=== PATIENT | male | born 1960 | race Caucasian/White ===

== ENCOUNTER 2016-08-22 21:28 | Inpatient (IN) | payer BC ==
[2016-08-22 22:21] VITALS: BMI 22.8
[2016-08-22] MEDS ORDERED: IPRATROPIUM BR 0.02% 0.5 MG/2.5 ML VIAL.NEB. NEB ONE ×2 (23:05→23:27)
[2016-08-22] MEDS ORDERED: ALBUTEROL SO4 0.083% IH SOL 2.5 MG/3 ML VIAL.NEB. NEB ONE ×2 (23:05→23:27)
[2016-08-22] MEDS ORDERED: predniSONE 20 MG TABLET (UD) PO ONE (23:05)
--- NOTE | 2016-08-22 23:26 | PDOC ---
History of Present Illness - History of Present Illness Initial Comments: 08/23/16 00:14 The patient is a 55 year old male, with a significant past medical history of COPD, who presents to the emergency department with tannish-productive cough and shortness of breath for 3 days despite using his albuterol. The patient states he can barely shower without becoming short of breath. He states he also feels jittery the past couple of days. The patient reports using his albuterol at least five times daily. He denies chest pain, headache and dizziness. He denies fever, chills, nausea, vomit, diarrhea and constipation. He denies dysuria, frequency, urgency and hematuria. Allergies: NKDA Past surgical history: left knee and lower back surgeries Social history: everyday tobacco smoker (10 cigarettes) PCP - Dr. Parker Food Service Utility Worker - Dr. Putnam Website Developer: Dr. Vilchis <Annika Arnett - Last Filed: 08/23/16 00:13> - General History Source: Patient Exam Limitations: No Limitations <Brock Munroe - Last Filed: 08/23/16 01:19> - General Chief Complaint: Respiratory Stated Complaint: DIFF BREATHING Time Seen by Provider: 08/22/16 22:39 Past History <Annika Arnett - Last Filed: 08/23/16 00:13> - Past Medical History Anemia: No Asthma: No Cancer: No Cardiac Disorders: No CVA: No COPD: Yes CHF: No Dementia: No Diabetes: No GI Disorders: No Disorders: No HTN: No Hypercholesterolemia: No Liver Disease: No Seizures: No Thyroid Disease: No - Surgical History Abdominal Surgery: No Appendectomy: No Cardiac Surgery: No Cholecystectomy: No Lung Surgery: No Neurologic Surgery: No Orthopedic Surgery: Yes (LEFT KNEE ARTHROSCOPY 2012) - Psycho/Social/Smoking Cessation Hx Anxiety: No Suicidal Ideation: No Smoking Status: Yes Smoking History: Never smoked Number of Cigarettes Smoked Daily: 40 Information on smoking cessation initiated: Yes 'Breaking Loose' booklet given: 08/22/16 Hx Alcohol Use: Yes (SOCIALLY) Drug/Substance Use Hx: No Substance Use Type: None Hx Substance Use Treatment: No <Brock Munroe - Last Filed: 08/23/16 01:19> - Past Medical History Allergies/Adverse Reactions: Allergies Allergy/AdvReac Type Severity Reaction Status Date / Time No Known Allergies Allergy Verified 08/22/16 22:01 Home Medications: Ambulatory Orders Albuterol Sulfate Inhaler - [Ventolin Hfa Inhaler -] 1 - 2 inh PO QID PRN Budesonide/Formeterol Fumarate [SYMBICORT 160/4.5mcg -] 2 inh PO DAILY 08/23/16 Meloxicam [Mobic] 7.5 mg PO DAILY 08/23/16 Oxycodone HCl/Acetaminophen [Percocet 5-325 mg Tablet -] 1 tab PO DAILY PRN 01/02 Pregabalin [Lyrica] 50 mg PO BID 08/23/16 Review of Systems - Review of Systems Able to Perform ROS?: Yes Comments:: 08/23/16 00:14 GENERAL/CONSTITUTIONAL: No fever or chills. No weakness. HEAD, EYES, EARS, NOSE AND THROAT: No change in vision. No ear pain or discharge. No sore throat. CARDIOVASCULAR: No chest pain or shortness of breath. RESPIRATORY: (+) shortness of breath, cough, and dyspnea on exertion. No wheezing, or hemoptysis. GASTROINTESTINAL: No nausea, vomiting, diarrhea or constipation. GENITOURINARY: No dysuria, frequency, or change in urination. MUSCULOSKELETAL: No joint or muscle swelling or pain. No neck or back pain. SKIN: No rash NEUROLOGIC: No headache, vertigo, loss of consciousness, or change in strength/ sensation. ENDOCRINE: No increased thirst. No abnormal weight change. HEMATOLOGIC/LYMPHATIC: No anemia, easy bleeding, or history of blood clots. ALLERGIC/IMMUNOLOGIC: No hives or skin allergy. <Annika Arnett - Last Filed: 08/23/16 00:13> *Physical Exam - Vital Signs Last Vital Signs Temp Pulse Resp BP Pulse Ox 97.4 F L 109 H 20 155/106 91 L 08/22/16 22:01 08/22/16 22:01 08/22/16 22:01 08/22/16 22:01 08/22/16 22:01 - Physical Exam Comments: 08/23/16 00:15 GENERAL: Awake, alert, and fully oriented, in no acute distress HEAD: No signs of trauma EYES: PERRLA, EOMI, sclera anicteric, conjunctiva clear ENT: Auricles normal inspection, hearing grossly normal, nares patent, oropharynx clear without exudates. Moist mucosa NECK: Normal ROM, supple, no lymphadenopathy, JVD, or masses LUNGS: (+) mild end expiratory wheezing bilaterally. Breath sounds equal. No crackles HEART: Regular rate and rhythm, normal S1 and S2, no murmurs, rubs or gallops ABDOMEN: Soft, nontender, normoactive bowel sounds. No guarding, no rebound. No masses EXTREMITIES: Normal range of motion, no edema. No clubbing or cyanosis. No cords, erythema, or tenderness NEUROLOGICAL: Cranial nerves II-XII intact. Normal speech, normal gait. Sensation intact in upper and lower extremities. 5/5 motor strength in upper and lower extremities. No pronator drift. Finger to nose intact. Rapid alternations intact. SKIN: Warm, Dry, normal turgor, no rashes or lesions noted. <Annika Arnett - Last Filed: 08/23/16 00:13> - Vital Signs Last Vital Signs Temp Pulse Resp BP Pulse Ox 97.4 F L 109 H 20 155/106 91 L 08/22/16 22:01 08/22/16 22:01 08/22/16 22:01 08/22/16 22:01 08/22/16 22:01 <Brock Munroe - Last Filed: 08/23/16 01:19> Heart Score/ECG Review #1 ECG reviewed & interpreted by me at: 00:30 08/23/16 01:03 NSR 109, no std/jolanta, normal axis, normal intervals, QTC 482 msec, T wave flat V2 <Brock Munroe - Last Filed: 08/23/16 01:19> ED Treatment Course - LABORATORY CBC & Chemistry Diagram: 08/22/16 23:06 08/22/16 23:06 - ADDITIONAL ORDERS Additional order review: Laboratory Results 08/22/16 23:06 Sodium 138 Potassium 4.6 Chloride 101 Carbon Dioxide 26 Anion Gap 11 BUN 16 Creatinine 1.3 D Creat Clearance w eGFR 57.31 Random Glucose 97 Calcium 8.6 Magnesium 2.1 Total Bilirubin 0.6 D AST 24 D ALT 36 D Alkaline Phosphatase 90 Creatine Kinase 88 Troponin I 0.03 B-Natriuretic Peptide 4195.48 H Total Protein 6.9 Albumin 3.6 08/22/16 23:06 RBC 4.84 MCV 89.9 MCHC 31.9 L RDW 14.0 MPV 9.8 Neutrophils % 69.8 Lymphocytes % 17.8 Monocytes % 10.4 H Eosinophils % 1.3 Basophils % 0.7 - Medications Given in the ED: ED Medications Discontinued Medications Generic Name Dose Route Start Last Admin Trade Name Harley PRN Reason Stop Dose Admin Albuterol Sulfate 3 amp 08/22/16 23:05 08/22/16 23:34 Ventolin 0.083% Nebulizer Soln - NEB 08/22/16 23:06 3 amp ONCE ONE Administration Ipratropium [place] 3 amp 08/22/16 23:05 08/22/16 23:34 Atrovent 0.02% Nebulizer - NEB 08/22/16 23:06 3 amp ONCE ONE Administration Prednisone 60 mg 08/22/16 23:05 08/22/16 23:36 Deltasone - PO 08/22/16 23:06 60 mg ONCE ONE Administration <Annika Arnett - Last Filed: 08/23/16 00:13> - LABORATORY CBC & Chemistry Diagram: 08/22/16 23:06 08/22/16 23:06 - RADIOLOGY Radiology Studies Ordered: Category Date Time Status CHEST PA & LAT [RAD] Stat Radiology 08/22/16 23:05 Ordered <Brock Munroe - Last Filed: 08/23/16 01:19> Medical Decision Making - Medical Decision Making 08/22/16 23:23 A portion of this note was documented by scribe services under my direction. I have reviewed the details of the note, within reason, and agree with the documentation with the following case summary and management plan written by me. Patient treated in the ED. Nursing notes are reviewed and incorporated into the medical decision-making. Vital signs reviewed. Peripheral IV access obtained by the nurse, laboratory studies are drawn and sent, reviewed and interpreted by myself. Vital Signs Temp Pulse Resp BP Pulse Ox 97.4 F L 109 H 20 155/106 91 L 08/22/16 22:01 08/22/16 22:01 08/22/16 22:01 08/22/16 22:01 08/22/16 22:01 55-year-old male with history of COPD presents to the ED with 3 days of tannish- productive cough and wheezing. He reports increasing SOB and HANSEN despite taking albuterol. Denies fevers, chills, sick contacts. The pt is likely having a COPD exacerbation. Labs, chest xray, nebs, prednisone and reassess. 08/23/16 01:16 CBC, BMP 08/22/16 23:06 08/22/16 23:06 CMP Sodium 138 mmol/L (136-145) 08/22/16 23:06 Potassium 4.6 mmol/L (3.5-5.1) 08/22/16 23:06 Chloride 101 mmol/L (98-107) 08/22/16 23:06 Carbon Dioxide 26 mmol/L (21-32) 08/22/16 23:06 Anion Gap 11 (8-16) 08/22/16 23:06 BUN 16 mg/dL (7-18) 08/22/16 23:06 Creatinine 1.3 mg/dL (0.7-1.3) D 08/22/16 23:06 Creat Clearance w eGFR 57.31 (>60) 08/22/16 23:06 Random Glucose 97 mg/dL (74-106) 08/22/16 23:06 Calcium 8.6 mg/dL (8.5-10.1) 08/22/16 23:06 Magnesium 2.1 mg/dL (1.8-2.4) 08/22/16 23:06 Total Bilirubin 0.6 mg/dL (0.2-1.0) D 08/22/16 23:06 AST 24 U/L (15-37) D 08/22/16 23:06 ALT 36 U/L (12-78) D 08/22/16 23:06 Alkaline Phosphatase 90 U/L (45-117) 08/22/16 23:06 Creatine Kinase 88 IU/L (39-308) 08/22/16 23:06 Troponin I 0.03 ng/ml (0.00-0.05) 08/22/16 23:06 B-Natriuretic Peptide 4195.48 pg/ml (5-125) H 08/22/16 23:06 Total Protein 6.9 g/dl (6.4-8.2) 08/22/16 23:06 Albumin 3.6 g/dl (3.4-5.0) 08/22/16 23:06 Chest xray reviewed by me, pending official radiology read. Cardiomegaly and pulm vasc congestion. Pt reports some mild improvement with nebs. I suspect that this may have occurred because this is likely CHF, especially given elevated BNP IV lasix ordered. Case discussed with Dr. Harrison. She accepts the patient to telemetry admission. Case discussed in detail with admitting physician including history, physical exam and ancillary studies. Admitting physician has assumed care for the patient, will follow all pending diagnostics and will complete the evaluation and treatment. <Brock Munroe - Last Filed: 08/23/16 01:19> *DC/Admit/Observation/Transfer - Attestations Scribe Attestion: 08/23/16 00:17 Documentation prepared by Annika Arnett, acting as medical instrument cable fabricator for Brock Munroe MD, MD <Annika Arnett - Last Filed: 08/23/16 00:13> - Discharge Dispostion Admit: Yes <Brock Munroe - Last Filed: 08/23/16 01:19> Diagnosis at time of Disposition: Congestive heart failure Qualifiers: Congestive heart failure type: unspecified congestive heart failure type Congestive heart failure chronicity: acute Qualified Code(s): I50.9 - Heart failure, unspecified - Discharge Dispostion Condition at time of disposition: Stable - Referrals Referrals: Tucker Giang [Primary Care Provider] -
[2016-08-22] MEDS ORDERED: predniSONE 20 MG TABLET (UD) ONE (23:27)
[2016-08-22 23:43] LABS: BASOPHIL 0.7 % (0-2.0); EOSINOPHIL 1.3 % (0-4.5); MCH 28.7 pg (25.7-33.7); MCHC 31.9 g/dl (32.0-35.9); MEAN CELL VOLUME 89.9 fl (80-96); MEAN PLT VOLUME 9.8 fl (7.5-11.1); NEUTROPHILS 69.8 % (42.8-82.8); PLATELET COUNT 245 K/MM3 (134-434); WHITE BLOOD COUNT 10.8 K/mm3 (4.0-10.0)
[2016-08-23 00:03] LABS: ALBUMIN 3.6 g/dl (3.4-5.0); BILIRUBIN,TOTAL 0.6 mg/dL (0.2-1.0); CALCIUM 8.6 mg/dL (8.5-10.1); CREATININE 1.3 mg/dL (0.7-1.3); MAGNESIUM 2.1 mg/dL (1.8-2.4); TOT PROT 6.9 g/dl (6.4-8.2)
[2016-08-23 00:07] LABS: TROPONIN I 0.03 ng/ml (0.00-0.05)
[2016-08-23] MEDS ORDERED: FUROSEMIDE 40 MG/4 ML INJECTABLE VIAL IVPB ONE (00:55)
[2016-08-23] MEDS ORDERED: FUROSEMIDE 40 MG/4 ML INJECTABLE VIAL ONE ×2 (00:58→10:24)
[2016-08-23] MEDS ORDERED: ALBUTEROL SO4 2.5/IPRATROPIUM 0.5 INH SOL 3 ML VIAL.NEB. NEB ONE (02:33)
[2016-08-23] MEDS ORDERED: methylPREDNISolone NA SUCC 125 MG/2 ML VIAL ONE ×2 (02:46→10:39)
[2016-08-23] MEDS: methylPREDNISolone NA SUCC 40 MG/1 ML VIAL IVPB SCH ×3 (02:50→17:55)
[2016-08-23] MEDS ORDERED: OXYCODONE/APAP 5/325MG COMBO TABLET PO PRN (03:42)
--- NOTE | 2016-08-23 03:42 | HP ---
CHIEF COMPLAINT: SOB, cough PCP: Rahat HISTORY OF PRESENT ILLNESS: This is a 55 year old male with a past medical history of COPD herniated disc c- spine, lumbar sx, and OA who presented to the ED with a 3 day h/o cough and SOB but the SOB became severe today. Cough initially was productive with tannish sputum, but now pt no longer able to bring up sputum. Pt states that he really hasn't felt great since May. At that time he was seen by his PMD for "bronchitis" but did not improve with initial treatment and he was referred to pulmonology who diagnosed him with COPD/emphysema. He had a CT done in June which showed a calcification of his ?aorta? (something with the top of the heart and is making an arc with his fingers) so he was referred to cardiology. He saw cardiology today who ordered an echo for later this week but didn't treat him for his breathing. ER course was notable for: (1) WBC 10.8 (2) trop neg, BNP 4195 (3) given lasix 40mg IVP, prednisone 60mg po, albuterol/atrovent neb x 3 Recent Travel: pt denies PAST MEDICAL HISTORY: COPD herniated disc upper c-spine PAST SURGICAL HISTORY: L knee arthroscopy 2012 hemorrhoidectomy lumbar spine surgery, L1-L2 Social History: Smokin/2 ppd Alcohol: one glass of wine with dinner, occ a few beers after work Drugs: none Family History: father 4v CABG grandmother age 88 [place] Allergies No Known Allergies Allergy (Verified 08/22/16 22:01) HOME MEDICATIONS: 3 Medication Instructions Recorded Albuterol Sulfate Inhaler - 1 - 2 inh PO QID PRN 08/23/16 [Ventolin Hfa Inhaler -] Budesonide/Formeterol Fumarate 2 inh PO DAILY 08/23/16 [SYMBICORT 160/4.5mcg -] Meloxicam [Mobic] 7.5 mg PO DAILY 08/23/16 Oxycodone HCl/Acetaminophen 1 tab PO DAILY PRN 08/23/16 [Percocet 5-325 mg Tablet -] Pregabalin [Lyrica] 50 mg PO BID 08/23/16 REVIEW OF SYSTEMS CONSTITUTIONAL: Absent: fever, chills, diaphoresis, generalized weakness, malaise, loss of appetite, weight change HEENT: Absent: rhinorrhea, nasal congestion, throat pain, throat swelling, difficulty swallowing, mouth swelling, ear pain, eye pain, visual changes CARDIOVASCULAR: Absent: chest pain, syncope, palpitations, irregular heart rate, lightheadedness , peripheral edema RESPIRATORY: Present: cough, shortness of breath, dyspnea with exertion Absent: orthopnea, wheezing, stridor, hemoptysis GASTROINTESTINAL: Absent: abdominal pain, abdominal distension, nausea, vomiting, diarrhea, constipation, melena, hematochezia GENITOURINARY: Absent: dysuria, frequency, urgency, hesitancy, hematuria, flank pain, genital pain MUSCULOSKELETAL: Absent: myalgia, arthralgia, joint swelling, back pain, neck pain SKIN: Absent: rash, itching, pallor HEMATOLOGIC/IMMUNOLOGIC: Absent: easy bleeding, easy bruising, lymphadenopathy, frequent infections ENDOCRINE: Absent: unexplained weight gain, unexplained weight loss, heat intolerance, cold intolerance NEUROLOGIC: Absent: headache, focal weakness or paresthesias, dizziness, unsteady gait, seizure, mental status changes, bladder or bowel incontinence PSYCHIATRIC: Absent: anxiety, depression, suicidal or homicidal ideation, hallucinations. PHYSICAL EXAMINATION Vital Signs - 24 hr 3 08/23/16 08/23/16 01:43 01:44 Pulse Rate 110 H Pulse Rate [ 112 H Apical] Respiratory 22 Rate Blood Pressure 144/98 [Right Arm] O2 Sat by Pulse 95 93 L Oximetry (%) GENERAL: Awake, alert, and fully oriented, in no acute distress. HEAD: Normal with no signs of trauma. EYES: Pupils equal, round and reactive to light, extraocular movements intact, sclera anicteric, conjunctiva clear. No lid lag. EARS, NOSE, THROAT: Ears normal, nares patent, oropharynx clear without exudates. Moist mucous membranes. NECK: Normal range of motion, supple without lymphadenopathy, JVD, or masses. LUNGS: wheezing all lung hodge, no crackles auscultated HEART: Regular rate and rhythm, normal S1 and S2 without murmur, rub or gallop. ABDOMEN: Soft, nontender, not distended, normoactive bowel sounds, no guarding, no rebound, no masses. No hepatomegaly or splenomegaly. MUSCULOSKELETAL: Normal range of motion at all joints. No bony deformities or tenderness. No CVA tenderness. UPPER EXTREMITIES: 2+ pulses, warm, well-perfused. No cyanosis. No clubbing. Cap refill <2 seconds. No peripheral edema. LOWER EXTREMITIES: 2+ pulses, warm, well-perfused. No calf tenderness. tr edema bilat NEUROLOGICAL: Cranial nerves II-XII intact. Normal speech. Normal gait. PSYCHIATRIC: Cooperative. Good eye contact. Appropriate mood and affect. SKIN: Warm, dry, normal turgor, no rashes or lesions noted. Laboratory Results - last 24 hr 3 08/22/16 08/22/16 23:06 23:06 WBC 10.8 H RBC 4.84 Hgb 13.9 Hct 43.5 MCV 89.9 MCHC 31.9 L RDW 14.0 Plt Count 245 MPV 9.8 Neutrophils % 69.8 Lymphocytes % 17.8 Monocytes % 10.4 H Eosinophils % 1.3 Basophils % 0.7 Sodium 138 Potassium 4.6 Chloride 101 Carbon Dioxide 26 Anion Gap 11 BUN 16 Creatinine 1.3 D Creat Clearance w eGFR 57.31 Random Glucose 97 Calcium 8.6 Magnesium 2.1 Total Bilirubin 0.6 D AST 24 D ALT 36 D Alkaline Phosphatase 90 Creatine Kinase 88 Troponin I 0.03 B-Natriuretic Peptide 4195.48 H Total Protein 6.9 Albumin 3.6 CXR: cardiomegaly, increased vascular congestion, no obvious pleural effusion or infiltrates ECG: SR, [id number], no acute MALDONADO, STD, nonspecific ST changes ASSESSMENT/PLAN: 55yM with PMH COPD, OA, herniated disc c-spine presented to the ED with a 2-3 day h/o productive cough and SOB, SOB severe today. Pt is being admitted for COPD and CHF exacerbations. COPD exac - given prednisone 60 in ED, start solumedrol 60mg Q8h - duoneb QID - cont home symbicort CHF exac - new onset - Echo tomorrow - cont lasix 40mg IVP daily - cardiology consult OA - home mobic nonformulary, discussed with pt changing to formulary celebrex but pt states that he developed edema on celebrex - will bring in home mobic. Cont home percocet PRN. DVT PPX - heparin TID FEN - no IVF, tolerating po - repeat BMP in AM - low sodium diet as tolerated Dispo: Pt currently requires inpatient care Visit type - Emergency Visit Emergency Visit: Yes ED Registration Date: 08/22/16 Care time: The patient presented to the Emergency Department on the above date and was hospitalized for further evaluation of their emergent condition. - New Patient This patient is new to me today: Yes Date on this admission: 08/23/16 - Critical Care Critical Care patient: No
[2016-08-23] MEDS ORDERED: oxyCODONE HCL 5 MG TABLET PO PRN (03:54)
[2016-08-23] MEDS ORDERED: ACETAMINOPHEN 325 MG TABLET (FP) PO PRN (03:54)
[2016-08-23] MEDS: HEPARIN NA (PORCINE) 5,000 UNITS/ML 1ML VIAL SQ SCH ×3 (05:25→22:26)
[2016-08-23] MEDS ORDERED: HEPARIN NA (PORCINE) 5,000 UNITS/ML 1ML VIAL ONE ×2 (05:25→14:28)
[2016-08-23] MEDS ORDERED: ALBUTEROL SO4 2.5/IPRATROPIUM 0.5 INH SOL 3 ML VIAL.NEB. NEB SCH (06:00)
[2016-08-23 06:47] LABS: BASOPHIL 0.3 % (0-2.0); EOSINOPHIL 0.1 % (0-4.5); MCH 29.9 pg (25.7-33.7); MCHC 33.2 g/dl (32.0-35.9); MEAN CELL VOLUME 89.9 fl (80-96); MEAN PLT VOLUME 9.7 fl (7.5-11.1); NEUTROPHILS 91.7 % (42.8-82.8); PLATELET COUNT 230 K/MM3 (134-434); RDW 14.1 % (11.9-15.9); WHITE BLOOD COUNT 8.9 K/mm3 (4.0-10.0)
--- NOTE | 2016-08-23 09:00 | PN ---
Progress Note (short form) - Note Progress Note: Cardiology Consult Dictated 55 M smoker w/ COPD admitted with several days worsening SOB, cough and associated chest tightness with cough. BNP also markedly elevated. Clinical picture c/w AECOPD with some component of mildly decompensated CHF ( unknown type). REC: 1. Telemetry 2. Echo to assess LV 3. IV Lasix 4. Cycle cardiac enzymes 5. Pulm Consult 6. Ischemic eval once pulmonary status and volume status optimized.
[2016-08-23 09:28] LABS: ANION GAP 11 (8-16); CALCIUM 8.9 mg/dL (8.5-10.1); CO2 23 mmol/L (21-32); CREATININE 1.4 mg/dL (0.7-1.3); GLUCOSE,RANDOM 155 mg/dL (74-106)
[2016-08-23 09:38] LABS: TROPONIN I < 0.02 ng/ml (0.00-0.05)
[2016-08-23] MEDS ORDERED: PATIENT'S OWN MEDICATION (NON-FORMULARY) (Meloxicam [Mobic] 7.5 MG) PO SCH (10:00)
--- NOTE | 2016-08-23 10:03 | CONS ---
DATE OF CONSULTATION: 08/23/2016 REQUESTING PROVIDER: RICO Brooks REASON FOR CONSULTATION: For congestive heart failure. HISTORY OF PRESENT ILLNESS: The patient is a 55-year-old male with past medical history of COPD diagnosed in May of 2016, a 2-yvyu-whz-day smoker, questionable atherosclerotic heart disease, who presents to the emergency room for several days of worsened shortness of breath associated with primarily dry cough and associated chest tightness. His history of present illness really begins in May when he began feeling short of breath with intermittent cough and was diagnosed with COPD. He has been on several outpatient courses of antibiotics as well as inhalers, and he states he has had no significant improvement in symptoms. He has also noticed some slight lower extremity edema at the level of the ankle and occasional symptoms consistent with PND. He has chest pain with coughing, but not in the absence of coughing. He denies palpitations, syncope. He denies prior myocardial infarction or coronary interventions. PAST MEDICAL HISTORY: As above. MEDICATIONS: His home medications include Lyrica 50 b.i.d., Mobic p.r.n., budesonide inhaler, albuterol inhaler, and Percocet p.r.n. FAMILY HISTORY: Significant for coronary disease in his father at an older age of 80. SOCIAL HISTORY: He is a 9-hlvr-enc-day smoker, social drinker. He denies illicit drug use. He is with at bedside. PHYSICAL EXAMINATION: Vital signs: Patient was afebrile, temperature of 97.4, pulse 107, regular, blood pressure on admission was 144/98, he is saturating 93 on room air, 97 on 2 L nasal cannula. Neck: There was no JVD. Heart: Regular with no murmurs. Chest: Consistent with diffuse bilateral rhonchi, mild expiratory wheezing, but no rales. Abdomen: Obese, soft, nontender. Extremities: No significant pitting edema. LABORATORIES: White count initially 10.8, now 8.9, hematocrit 44.4, platelets 230. Sodium 138, potassium 4.6, creatinine 1.3. CK and troponin negative x1 set. BUN 4195. Chest x-ray showed cardiomegaly with mild increased pulmonary vascular congestion, there was no infiltrate or effusion. His EKG: Sinus tachycardia at 109 beats per minute with poor R-wave progression, non-specific T-wave abnormalities. ASSESSMENT: This is a 55-year-old male smoker with chronic obstructive pulmonary disease presenting with several days of worsening shortness of breath associated with cough. The clinical picture is consistent with an acute exacerbation of chronic obstructive pulmonary disease with superimposed mild congestive heart failure of unknown type. PLAN: 1. Agree with admitting to telemetry for further observation. 2. Lasix 40 mg IV daily with careful attention to electrolytes. 3. Cycle cardiac enzymes. 4. Echocardiogram to assess LV function. 5. Pulmonary consultation. 6. When pulmonary status is optimized and volume status is optimized, patient will need ischemic evaluation. Thank you for the consultation. KYLE CALIX M.D. [id number]
[2016-08-23] MEDS ORDERED: PREGABALIN 50 MG CAPSULE ONE (10:39)
[2016-08-23] MEDS: PREGABALIN 50 MG CAPSULE PO SCH ×2 (10:45→22:26)
[2016-08-23] MEDS: FUROSEMIDE 40 MG/4 ML INJECTABLE VIAL IVPUSH SCH (10:45)
[2016-08-23] MEDS: BUDESONIDE/FORMETEROL FUMARATE 160/4.5 mcg INHALER IH SCH ×2 (12:15→22:27)
[2016-08-23] MEDS ORDERED: LISINOPRIL 5 MG TABLET (FP) PO ONE (15:00)
[2016-08-23 15:37] LABS: ANION GAP 10 (8-16); CALCIUM 8.8 mg/dL (8.5-10.1); CO2 27 mmol/L (21-32); CREATININE 1.4 mg/dL (0.7-1.3); GLUCOSE,RANDOM 167 mg/dL (74-106); MAGNESIUM 2.2 mg/dL (1.8-2.4)
[2016-08-23 15:39] LABS: TROPONIN I < 0.02 ng/ml (0.00-0.05)
--- NOTE | 2016-08-23 15:59 | CONSULT ---
Consult Consult Specialty:: PULMONARY Referred by:: Dr. De Leon Reason for Consultation:: COPD - History of Present Illness Chief Complaint: shortness of breath History of Present Illness: 55yo male with h/o recently diagnosed COPD, smoker who presents with worsening shortness of breath x 3 days. He denies chest pain or palpitations. No fevers, chills or sweats. He does report a cough that is mostly nonproductive but occasionally with whitish sputum and does hear wheezing. He was recently seen as an outpt by a hog tender who started him on Symbicort which he states provides minimal relief and just makes him jittery. He was sent to a utility repairer as outpt but has not felt well enough to perform any testing. He does report increasing leg swelling which he attributes to Lyrica and he sleeps on 4 pillows for comfort. He does not see a medical doctor on a regular basis, just a pain specialist. He is a long time smoker started at age 10, smoked as much as 2 PPD, now down to 10 cigarettes/day. He is a social drinker but did drink heavier in the past. - History Source History Provided By: Patient, Medical Record Limitations to Obtaining History: No Limitations - Past Medical History Pulmonary: Yes: COPD - Past Surgical History Additional Surgical History: back surgeries - Alcohol/Substance Use Hx Alcohol Use: Yes (SOCIALLY) - Smoking History Smoking history: Current every day smoker Have you smoked in the past 12 months: Yes Aproximately how many cigarettes per day: 10 Home Medications - Allergies Allergies/Adverse Reactions: Allergies Allergy/AdvReac Type Severity Reaction Status Date / Time No Known Allergies Allergy Verified 08/22/16 22:01 - Home Medications Home Medications: Ambulatory Orders Albuterol Sulfate Inhaler - [Ventolin Hfa Inhaler -] 1 - 2 inh PO QID PRN Budesonide/Formeterol Fumarate [SYMBICORT 160/4.5mcg -] 2 inh PO DAILY 08/23/16 Meloxicam [Mobic] 7.5 mg PO DAILY 08/23/16 Oxycodone HCl/Acetaminophen [Percocet 5-325 mg Tablet -] 1 tab PO DAILY PRN 01/02 Pregabalin [Lyrica] 50 mg PO BID 08/23/16 Family Disease History - Family Disease History Family History: Denies Review of Systems - Review of Systems Constitutional: denies: Chills, Fever Eyes: denies: Recent Change in Vision HENT: denies: Nasal Congestion, Throat Pain Neck: denies: Stiffness, Tenderness Cardiovascular: reports: Edema, Shortness of Breath. denies: Chest Pain, Palpitations Respiratory: reports: Cough, SOB, Wheezing. denies: Hemoptysis Gastrointestinal: denies: Abdominal Pain, Nausea, Vomiting Genitourinary: denies: Dysuria, Hematuria Neurological: denies: Dizziness, Headache Physical Exam Vital Sings: Vital Signs Temperature 97.6 F 08/23/16 10:31 Pulse Rate 104 H 08/23/16 10:31 Respiratory Rate 20 08/23/16 10:31 Blood Pressure 138/84 08/23/16 10:31 O2 Sat by Pulse Oximetry (%) 95 08/23/16 10:31 Constitutional: Yes: Calm Eyes: Yes: Conjunctiva Clear, EOM Intact HENT: Yes: Atraumatic, Normocephalic Neck: Yes: Supple, Trachea Midline Cardiovascular: Yes: Regular Rate and Rhythm Respiratory: Yes: Rhonchi, Wheezes ...Clubbing: No Gastrointestinal: Yes: Normal Bowel Sounds, Soft. No: Tenderness Edema: Yes Labs: CBC, BMP 08/23/16 06:30 08/23/16 14:15 Imaging - Results Chest X-ray: Report Reviewed, Image Reviewed (cardiomegaly, pulmonary vascular congestion) Problem List - Problems (1) Acute systolic (congestive) heart failure Code(s): I50.21 - ACUTE SYSTOLIC (CONGESTIVE) HEART FAILURE (2) COPD exacerbation Code(s): J44.1 - CHRONIC OBSTRUCTIVE PULMONARY DISEASE W (ACUTE) EXACERBATION (3) Smoker Code(s): F17.200 - NICOTINE DEPENDENCE, UNSPECIFIED, UNCOMPLICATED Assessment/Plan Acute on ?Chronic LV Systolic Heart Failure r/o Acute COPD Exacerbation Smoker - IV lasix - monitor urine output, creatinine - daily weights, I/Os - suspect acute symptoms related to heart failure - beta krystyna when euvolemic, ARMANDO-I/ARB when renal function stabilizes - empiric medrol x 48 hrs then will reassess - inhaled bronchodilators PRN as pt does not report relief with nebulizer treatments - will need cardiac work up - DVT prophylaxis Thank you for this consult Luis A Strete MD
--- NOTE | 2016-08-23 16:38 | EKG ---
Test Reason : Blood Pressure : / mmHG Vent. Rate : 109 BPM Atrial Rate : 109 BPM P-R Int : 170 ms QRS Dur : 094 ms QT Int : 358 ms P-R-T Axes : 073 070 068 degrees QTc Int : 482 ms SINUS TACHYCARDIA POSSIBLE LEFT ATRIAL ENLARGEMENT NONSPECIFIC T WAVE ABNORMALITY ABNORMAL ECG WHEN COMPARED WITH ECG OF 11-OCT-2011 10:39, NO SIGNIFICANT CHANGE WAS FOUND Confirmed by SADE CUNNINGHAM MD ([id number]) on 08/23/2016 4:37:33 PM Referred By: Confirmed By:SADE CUNNINGHAM MD
--- NOTE | 2016-08-23 16:39 | EKG ---
Test Reason : Blood Pressure : / mmHG Vent. Rate : 103 BPM Atrial Rate : 103 BPM P-R Int : 192 ms QRS Dur : 096 ms QT Int : 400 ms P-R-T Axes : 073 055 088 degrees QTc Int : 524 ms SINUS TACHYCARDIA BIATRIAL ENLARGEMENT T WAVE ABNORMALITY, CONSIDER ANTERIOR ISCHEMIA PROLONGED QT ABNORMAL ECG WHEN COMPARED WITH ECG OF 23-AUG-2016 00:26, T WAVE INVERSION NOW EVIDENT IN LATERAL LEADS Confirmed by OCTAVIO MARTIN, SADE ([id number]) on 08/23/2016 4:39:20 PM Referred By: KAYLA KANG Confirmed By:SADE CUNNINGHAM MD
--- NOTE | 2016-08-23 17:30 | HOSP ---
Physical Examination Vital Signs: Vital Signs Temperature 97.3 F L 08/23/16 16:00 Pulse Rate 101 H 08/23/16 16:00 Respiratory Rate 20 08/23/16 16:00 Blood Pressure 130/86 08/23/16 16:00 O2 Sat by Pulse Oximetry (%) 95 08/23/16 10:31 Labs: CBC, BMP 08/23/16 06:30 08/23/16 14:15 Hospitalist Encounter Assessment: Subjective: The patient was seen and examined at the bedside, he reports increase in orthopnea since May. He states he is feeling better today. ECHO with moderately dilated left ventricle, LVEF is severely reduced (EF 25-30% ). Severe global hypokinesis of the left ventricle, left atrium is moderately dilated, right atrium is mildly dilated, moderate MR. Mildly dilated inferior vena cava EKG with sinus tachycardia Current Medications Generic Name Dose Route Start Last Admin Trade Name Freq PRN Reason Stop Dose Admin Acetaminophen 325 mg 08/23/16 03:54 Tylenol - PO Q24H PRN PAIN Albuterol/Ipratropium 1 amp 08/23/16 16:05 Duoneb - NEB Q4H PRN SHORT OF BREATH/WHEEZING Budesonide/Formoterol Fumarate 2 puff 08/23/16 10:00 08/23/16 12:15 Symbicort 160/4.5mcg - IH Not Given BID NATALI Furosemide 40 mg 08/23/16 10:00 08/23/16 10:45 Lasix Injection - IVPUSH 40 mg DAILY NATALI Administration Heparin Sodium (Porcine) 5,000 unit 08/23/16 06:00 08/23/16 14:34 Heparin - SQ 5,000 unit TID NATALI Administration Lisinopril 2.5 mg 08/24/16 10:00 Prinivil PO DAILY NATALI Methylprednisolone Sodium Succinate 60 mg 08/23/16 02:45 08/23/16 10:45 Solu-Medrol - IVPB 60 mg Q8H-IV NATLAI Administration Oxycodone HCl 5 mg 08/23/16 03:54 Roxicodone - PO Q24H PRN PAIN Pantoprazole Sodium 40 mg 08/24/16 10:00 Protonix - PO DAILY NATALI Pregabalin 50 mg 08/23/16 10:00 08/23/16 10:45 Lyrica - PO 50 mg BID NATALI Administration Objective: Vital Signs Period Temp Pulse Resp BP Sys/Garcia Pulse Ox Last 24 Hr 97.3 F-97.6 F 101-112 16-22 130-155/84-106 91-97 Physical Exam: General: NAD, A&Ox3, appears fidgety Lungs: B/l rhonchi and wheezing throughout Heart: RRR, S1S2 Abd: Soft, non-tender, non-distended. Normoactive bowel sounds Ext: B/l lower extremity edema Neuro: CN 2-12 intact. 2+ DP/PT bilaterally CBCD WBC 8.9 K/mm3 (4.0-10.0) 08/23/16 06:30 RBC 4.94 M/mm3 (4.00-5.60) 08/23/16 06:30 Hgb 14.8 GM/dL (11.7-16.9) 08/23/16 06:30 Hct 44.4 % (35.4-49) 08/23/16 06:30 MCV 89.9 fl (80-96) 08/23/16 06:30 MCHC 33.2 g/dl (32.0-35.9) 08/23/16 06:30 RDW 14.1 % (11.9-15.9) 08/23/16 06:30 Plt Count 230 K/MM3 (134-434) 08/23/16 06:30 MPV 9.7 fl (7.5-11.1) 08/23/16 06:30 CMP Sodium 137 mmol/L (136-145) 08/23/16 14:15 Potassium 4.5 mmol/L (3.5-5.1) 08/23/16 14:15 Chloride 100 mmol/L (98-107) 08/23/16 14:15 Carbon Dioxide 27 mmol/L (21-32) 08/23/16 14:15 Anion Gap 10 (8-16) 08/23/16 14:15 BUN 24 mg/dL (7-18) H D 08/23/16 14:15 Creatinine 1.4 mg/dL (0.7-1.3) H 08/23/16 14:15 Creat Clearance w eGFR 57.31 (>60) 08/22/16 23:06 Random Glucose 167 mg/dL (74-106) H 08/23/16 14:15 Calcium 8.8 mg/dL (8.5-10.1) 08/23/16 14:15 Total Bilirubin 0.6 mg/dL (0.2-1.0) D 08/22/16 23:06 AST 24 U/L (15-37) D 08/22/16 23:06 ALT 36 U/L (12-78) D 08/22/16 23:06 Alkaline Phosphatase 90 U/L (45-117) 08/22/16 23:06 Total Protein 6.9 g/dl (6.4-8.2) 08/22/16 23:06 Albumin 3.6 g/dl (3.4-5.0) 08/22/16 23:06 CARDIAC ENZYMES Creatine Kinase 100 IU/L (39-308) 08/23/16 14:15 Troponin I < 0.02 ng/ml (0.00-0.05) 08/23/16 14:15 Assessment: This is a 55 year old male with PMHx of COPD, herniated c-spine disc , lumbar surgery, who presented to the ED with increased shortness of breath since May, worsening over the past 3 days. Plan: 1) Cardiology: Acute on ?chronic systolic heart failure - ECHO with severely reduced EF - Discussed with Dr. Espinosa, will start Lisinopril (dose ordered for today) - Continue IV diuretics, monitor kidney function - Strict I&O - Daily weight - Will need cardiac cath once euvolemic - Appreciate cardiology consult 2) Pulmonary: Acute COPD exacerbation - Continue Solumedrol - Inhaled bronchodilators - O2 via nc prn - Appreciate pulmonary consult 3) F/E/N: - Monitor electrolytes - Sodium controlled diet 4) Prophylaxis: - Heparin 5,000u sq tid - OOB ambulating 5) Dispo: - Requires continued inpatient care CODE STATUS: FULL CODE
[2016-08-24] MEDS: methylPREDNISolone NA SUCC 40 MG/1 ML VIAL IVPB SCH ×3 (01:55→17:15)
[2016-08-24] MEDS: HEPARIN NA (PORCINE) 5,000 UNITS/ML 1ML VIAL SQ SCH ×3 (06:21→21:46)
[2016-08-24 08:26] LABS: MCH 29.6 pg (25.7-33.7); MCHC 32.7 g/dl (32.0-35.9); MEAN CELL VOLUME 90.6 fl (80-96); MEAN PLT VOLUME 10.3 fl (7.5-11.1); PLATELET COUNT 284 K/MM3 (134-434); RDW 14.3 % (11.9-15.9); WHITE BLOOD COUNT 15.6 K/mm3 (4.0-10.0)
[2016-08-24 08:48] LABS: CALCIUM 9.1 mg/dL (8.5-10.1)
[2016-08-24 08:56] LABS: CREATININE 1.2 mg/dL (0.7-1.3); TROPONIN I 0.03 ng/ml (0.00-0.05)
--- NOTE | 2016-08-24 09:35 | PN ---
Progress Note, Physician Chief Complaint: Echo w/ severe LV dysfx ARMANDO-I started Feels little better - Current Medication List Current Medications: Active Medications Acetaminophen (Tylenol -) 325 mg PO Q24H PRN PRN Reason: PAIN Albuterol/Ipratropium (Duoneb -) 1 amp NEB Q4H PRN PRN Reason: SHORT OF BREATH/WHEEZING Budesonide/Formoterol Fumarate (Symbicort 160/4.5mcg -) 2 puff IH BID [facility] Last Admin: 08/23/16 22:27 Dose: Not Given Furosemide (Lasix Injection -) 40 mg IVPUSH DAILY [facility] Last Admin: 08/23/16 10:45 Dose: 40 mg Heparin Sodium (Porcine) (Heparin -) 5,000 unit SQ TID [facility] Last Admin: 08/24/16 06:21 Dose: 5,000 unit Lisinopril (Prinivil) 2.5 mg PO DAILY [facility] Methylprednisolone Sodium Succinate (Solu-Medrol -) 60 mg IVPB Q8H-IV [facility] Last Admin: 08/24/16 01:55 Dose: 60 mg Oxycodone HCl (Roxicodone -) 5 mg PO Q24H PRN PRN Reason: PAIN Pantoprazole Sodium (Protonix -) 40 mg PO DAILY [facility] Pregabalin (Lyrica -) 50 mg PO BID [facility] Last Admin: 08/23/16 22:26 Dose: 50 mg - Objective Vital Signs: Vital Signs Temperature 97.9 F 08/24/16 08:05 Pulse Rate 111 H 08/24/16 08:05 Respiratory Rate 18 08/24/16 08:05 Blood Pressure 143/104 08/24/16 08:05 O2 Sat by Pulse Oximetry (%) 92 L 08/24/16 06:00 Constitutional: Yes: No Distress Cardiovascular: Yes: Regular Rate and Rhythm Respiratory: Yes: Other (decreased breath sounds at bases w/ mild expiratory wheezing) Gastrointestinal: Yes: Soft, Abdomen, Obese Edema: Yes Edema: LLE: 1+, RLE: 1+ Neurological: Yes: Alert, Oriented Labs: CBC, BMP 08/24/16 06:05 08/24/16 06:05 Laboratory Tests 08/22/16 08/23/16 08/23/16 23:06 06:30 14:15 WBC Hgb Plt Count Potassium BUN Creatine Kinase 88 89 100 Troponin I 0.03 < 0.02 D < 0.02 08/24/16 08/24/16 06:05 06:05 WBC 15.6 H D Hgb 14.4 Plt Count 284 D Potassium 4.7 BUN 33 H D Creatine Kinase 107 Troponin I 0.03 D - ....Imaging EKG: Image Reviewed (TELE: NSR w rare PVC) Assessment/Plan 55 M smoker w/ COPD admitted with several days worsening SOB, cough and associated chest tightness with cough. BNP also markedly elevated. Clinical picture c/w AECOPD with acute systolic CHF. REC: 1. IV lasix 2. Tele: to start low dose BB when euvolemic, likely in next 48 hours 3. Increase Lisinopril 4. K and Mg repleted 5. Steroids to taper as per pulm 6. For cath when optimized from volume and pulmonary standpoint
[2016-08-24] MEDS: LISINOPRIL 5 MG TABLET (FP) PO SCH (09:53)
[2016-08-24] MEDS: PANTOPRAZOLE 40 MG TABLET (FP) PO SCH (09:54)
[2016-08-24] MEDS: PREGABALIN 50 MG CAPSULE PO SCH ×2 (09:54→21:44)
[2016-08-24] MEDS: FUROSEMIDE 40 MG/4 ML INJECTABLE VIAL IVPUSH SCH (09:54)
[2016-08-24] MEDS: BUDESONIDE/FORMETEROL FUMARATE 160/4.5 mcg INHALER IH SCH ×2 (09:54→21:46)
[2016-08-24] MEDS ORDERED: LISINOPRIL 5 MG TABLET (FP) PO SCH (10:00)
--- NOTE | 2016-08-24 11:59 | PN ---
Progress Note, Physician History of Present Illness: pulmonary alert,still congested,dyspneic ,+cough - Current Medication List Current Medications: Active Medications Acetaminophen (Tylenol -) 325 mg PO Q24H PRN PRN Reason: PAIN Albuterol/Ipratropium (Duoneb -) 1 amp NEB Q4H PRN PRN Reason: SHORT OF BREATH/WHEEZING Budesonide/Formoterol Fumarate (Symbicort 160/4.5mcg -) 2 puff IH BID [facility] Last Admin: 08/24/16 09:54 Dose: Not Given Furosemide (Lasix Injection -) 40 mg IVPUSH DAILY [facility] Last Admin: 08/24/16 09:54 Dose: 40 mg Heparin Sodium (Porcine) (Heparin -) 5,000 unit SQ TID [facility] Last Admin: 08/24/16 06:21 Dose: 5,000 unit Lisinopril (Prinivil) 5 mg PO DAILY [facility] Last Admin: 08/24/16 09:53 Dose: 5 mg Methylprednisolone Sodium Succinate (Solu-Medrol -) 60 mg IVPB Q8H-IV [facility] Last Admin: 08/24/16 09:54 Dose: 60 mg Oxycodone HCl (Roxicodone -) 5 mg PO Q24H PRN PRN Reason: PAIN Pantoprazole Sodium (Protonix -) 40 mg PO DAILY [facility] Last Admin: 08/24/16 09:54 Dose: 40 mg Pregabalin (Lyrica -) 50 mg PO BID [facility] Last Admin: 08/24/16 09:54 Dose: 50 mg Spironolactone (Aldactone -) 25 mg PO DAILY [facility] - Objective Vital Signs: Vital Signs Temperature 97.9 F 08/24/16 08:05 Pulse Rate 111 H 08/24/16 08:05 Respiratory Rate 18 08/24/16 08:05 Blood Pressure 143/104 08/24/16 08:05 O2 Sat by Pulse Oximetry (%) 92 L 08/24/16 06:00 Constitutional: Yes: Well Nourished, Calm Eyes: Yes: WNL HENT: Yes: WNL Neck: Yes: WNL Cardiovascular: Yes: Regular Rate and Rhythm, S1, S2 Respiratory: Yes: Rales (bilateral rales and rhonchi), Rhonchi Gastrointestinal: Yes: Normal Bowel Sounds, Soft Extremities: Yes: WNL Edema: Yes Labs: CBC, BMP 08/24/16 06:05 08/24/16 06:05 - ....Imaging Other: Pending (echo severe lv dysfunction,global hypokinesia) Assessment/Plan Problem List - Problems (1) Acute systolic (congestive) heart failure Code(s): I50.21 - ACUTE SYSTOLIC (CONGESTIVE) HEART FAILURE (2) COPD exacerbation Code(s): J44.1 - CHRONIC OBSTRUCTIVE PULMONARY DISEASE W (ACUTE) EXACERBATION (3) Smoker Code(s): F17.200 - NICOTINE DEPENDENCE, UNSPECIFIED, UNCOMPLICATED Assessment/Plan Acute on ?Chronic LV Systolic Heart Failure r/o Acute COPD Exacerbation Smoker - IV lasix - monitor urine output, creatinine - daily weights, I/Os - beta krystyna when euvolemic - empiric medrol x 48 hrs - inhaled bronchodilators PRN - DVT prophylaxis - PFTS outpatient - cardiac cath DR KING
[2016-08-24 12:21] LABS: TROPONIN I 0.02 ng/ml (0.00-0.05)
--- NOTE | 2016-08-24 13:22 | PN ---
Progress Note (short form) - Note Progress Note: Subjective: The patient was seen and examined at the bedside, he reports feeling better today, and states he slept well last night Current Medications Generic Name Dose Route Start Last Admin Trade Name Freq PRN Reason Stop Dose Admin Acetaminophen 325 mg 08/23/16 03:54 Tylenol - PO Q24H PRN PAIN Albuterol/Ipratropium 1 amp 08/23/16 16:05 Duoneb - NEB Q4H PRN SHORT OF BREATH/WHEEZING Budesonide/Formoterol Fumarate 2 puff 08/23/16 10:00 08/24/16 09:54 Symbicort 160/4.5mcg - IH Not Given BID NATALI Furosemide 40 mg 08/23/16 10:00 08/24/16 09:54 Lasix Injection - IVPUSH 40 mg DAILY NATALI Administration Heparin Sodium (Porcine) 5,000 unit 08/23/16 06:00 08/24/16 06:21 Heparin - SQ 5,000 unit TID NATALI Administration Lisinopril 5 mg 08/24/16 10:00 08/24/16 09:53 Prinivil PO 5 mg DAILY NATALI Administration Methylprednisolone Sodium Succinate 60 mg 08/23/16 02:45 08/24/16 09:54 Solu-Medrol - IVPB 60 mg Q8H-IV NATALI Administration Oxycodone HCl 5 mg 08/23/16 03:54 Roxicodone - PO Q24H PRN PAIN Pantoprazole Sodium 40 mg 08/24/16 10:00 08/24/16 09:54 Protonix - PO 40 mg DAILY NATALI Administration Pregabalin 50 mg 08/23/16 10:00 08/24/16 09:54 Lyrica - PO 50 mg BID NATALI Administration Spironolactone 25 mg 08/25/16 10:00 Aldactone - PO DAILY NATALI Objective: Vital Signs Period Temp Pulse Resp BP Sys/Garcia Pulse Ox Last 24 Hr 97.3 F-98.7 F 101-120 18-20 130-153/86-104 92-92 Physical Exam: General: NAD, A&Ox3, appears fidgety Lungs: B/l rhonchi Heart: RRR, S1S2 Abd: Soft, non-tender, non-distended. Normoactive bowel sounds Ext: B/l lower extremity edema Neuro: CN 2-12 intact. 2+ DP/PT bilaterally CBCD WBC 15.6 K/mm3 (4.0-10.0) H D 08/24/16 06:05 RBC 4.85 M/mm3 (4.00-5.60) 08/24/16 06:05 Hgb 14.4 GM/dL (11.7-16.9) 08/24/16 06:05 Hct 44.0 % (35.4-49) 08/24/16 06:05 MCV 90.6 fl (80-96) 08/24/16 06:05 MCHC 32.7 g/dl (32.0-35.9) 08/24/16 06:05 RDW 14.3 % (11.9-15.9) 08/24/16 06:05 Plt Count 284 K/MM3 (134-434) D 08/24/16 06:05 MPV 10.3 fl (7.5-11.1) 08/24/16 06:05 CMP Sodium 138 mmol/L (136-145) 08/24/16 06:05 Potassium 4.7 mmol/L (3.5-5.1) 08/24/16 06:05 Chloride 102 mmol/L (98-107) 08/24/16 06:05 Carbon Dioxide 25 mmol/L (21-32) 08/24/16 06:05 Anion Gap 11 (8-16) 08/24/16 06:05 BUN 33 mg/dL (7-18) H D 08/24/16 06:05 Creatinine 1.2 mg/dL (0.7-1.3) 08/24/16 06:05 Creat Clearance w eGFR 57.31 (>60) 08/22/16 23:06 Random Glucose 150 mg/dL (74-106) H 08/24/16 06:05 Calcium 9.1 mg/dL (8.5-10.1) 08/24/16 06:05 Total Bilirubin 0.6 mg/dL (0.2-1.0) D 08/22/16 23:06 AST 24 U/L (15-37) D 08/22/16 23:06 ALT 36 U/L (12-78) D 08/22/16 23:06 Alkaline Phosphatase 90 U/L (45-117) 08/22/16 23:06 Total Protein 6.9 g/dl (6.4-8.2) 08/22/16 23:06 Albumin 3.6 g/dl (3.4-5.0) 08/22/16 23:06 CARDIAC ENZYMES Creatine Kinase 128 IU/L (39-308) 08/24/16 11:50 Troponin I 0.02 ng/ml (0.00-0.05) D 08/24/16 11:50 Assessment: This is a 55 year old male with PMHx of COPD, herniated c-spine disc , lumbar surgery, who presented to the ED with increased shortness of breath since May, worsening over the past 3 days. Plan: 1) Cardiology: Acute on ?chronic systolic heart failure - ECHO with severely reduced EF - Increased Lisinopril to 5mg po daily - Continue IV diuretics, monitor kidney function - Strict I&O - Daily weight - Will need cardiac cath once euvolemic - Appreciate cardiology consult 2) Pulmonary: Acute COPD exacerbation - Continue Solumedrol - Inhaled bronchodilators - O2 via nc prn - Appreciate pulmonary consult 3) F/E/N: - Monitor electrolytes - Sodium controlled diet 4) Prophylaxis: - Heparin 5,000u sq tid - OOB ambulating 5) Dispo: - Requires continued inpatient care CODE STATUS: FULL CODE Visit type - Emergency Visit Emergency Visit: Yes ED Registration Date: 08/23/16 Care time: The patient presented to the Emergency Department on the above date and was hospitalized for further evaluation of their emergent condition. - New Patient This patient is new to me today: No - Critical Care Critical Care patient: No
[2016-08-25] MEDS: methylPREDNISolone NA SUCC 40 MG/1 ML VIAL IVPB SCH ×3 (01:40→17:51)
[2016-08-25] MEDS: HEPARIN NA (PORCINE) 5,000 UNITS/ML 1ML VIAL SQ SCH ×3 (06:47→21:59)
[2016-08-25 07:34] LABS: MCH 29.6 pg (25.7-33.7); MCHC 32.5 g/dl (32.0-35.9); MEAN PLT VOLUME 10.4 fl (7.5-11.1); PLATELET COUNT 309 K/MM3 (134-434); RDW 14.2 % (11.9-15.9)
[2016-08-25] MEDS: ALBUTEROL SO4 2.5/IPRATROPIUM 0.5 INH SOL 3 ML VIAL.NEB. NEB PRN (09:05)
--- NOTE | 2016-08-25 09:46 | PN ---
Progress Note, Physician - Current Medication List Current Medications: Active Medications Acetaminophen (Tylenol -) 325 mg PO Q24H PRN PRN Reason: PAIN Albuterol/Ipratropium (Duoneb -) 1 amp NEB Q4H PRN PRN Reason: SHORT OF BREATH/WHEEZING Budesonide/Formoterol Fumarate (Symbicort 160/4.5mcg -) 2 puff IH BID [facility] Last Admin: 08/24/16 21:46 Dose: Not Given Furosemide (Lasix Injection -) 40 mg IVPUSH DAILY [facility] Last Admin: 08/24/16 09:54 Dose: 40 mg Heparin Sodium (Porcine) (Heparin -) 5,000 unit SQ TID [facility] Last Admin: 08/25/16 06:47 Dose: 5,000 unit Lisinopril (Prinivil) 5 mg PO DAILY [facility] Last Admin: 08/24/16 09:53 Dose: 5 mg Methylprednisolone Sodium Succinate (Solu-Medrol -) 60 mg IVPB Q8H-IV [facility] Last Admin: 08/25/16 01:40 Dose: 60 mg Oxycodone HCl (Roxicodone -) 5 mg PO Q24H PRN PRN Reason: PAIN Pantoprazole Sodium (Protonix -) 40 mg PO DAILY [facility] Last Admin: 08/24/16 09:54 Dose: 40 mg Pregabalin (Lyrica -) 50 mg PO BID [facility] Last Admin: 08/24/16 21:44 Dose: 50 mg Spironolactone (Aldactone -) 25 mg PO DAILY [facility] - Objective Vital Signs: Vital Signs Temperature 98.2 F 08/25/16 06:00 Pulse Rate 104 H 08/25/16 06:00 Respiratory Rate 16 08/25/16 06:00 Blood Pressure 136/72 08/25/16 06:00 O2 Sat by Pulse Oximetry (%) 94 L 08/24/16 21:00 Eyes: Yes: WNL, Conjunctiva Clear, EOM Intact HENT: Yes: WNL, Atraumatic, Normocephalic Neck: Yes: WNL, Supple, Trachea Midline Cardiovascular: Yes: WNL, Regular Rate and Rhythm Respiratory: Yes: WNL, Regular, CTA Bilaterally Gastrointestinal: Yes: WNL, Normal Bowel Sounds Genitourinary: Yes: WNL Musculoskeletal: Yes: WNL Extremities: Yes: WNL Edema: No Integumentary: Yes: WNL Neurological: Yes: WNL, Alert, Oriented ...Motor Strength: WNL Psychiatric: Yes: WNL Labs: CBC, BMP 08/25/16 05:00 08/24/16 06:05 Assessment/Plan 55 M smoker w/ COPD admitted with several days worsening SOB, cough and associated chest tightness with cough. BNP also markedly elevated. Clinical picture c/w AECOPD with acute systolic CHF. REC: 1. IV lasix 2. Tele: to start low dose BB when euvolemic, likely in next 48 hours 3. Increase Lisinopril 4. K and Mg repleted 5. Steroids to taper as per pulm 6. For cath when optimized from volume and pulmonary standpoint
[2016-08-25] MEDS: FUROSEMIDE 40 MG/4 ML INJECTABLE VIAL IVPUSH SCH ×2 (10:03→15:33)
[2016-08-25] MEDS: PANTOPRAZOLE 40 MG TABLET (FP) PO SCH (10:03)
[2016-08-25] MEDS: LISINOPRIL 5 MG TABLET (FP) PO SCH (10:03)
[2016-08-25] MEDS: PREGABALIN 50 MG CAPSULE PO SCH ×2 (10:03→21:54)
[2016-08-25] MEDS: SPIRONOLACTONE 25 MG TABLET (FP) PO SCH (10:03)
--- NOTE | 2016-08-25 10:04 | PN ---
Progress Note, Physician History of Present Illness: pulmonary alert,less congested. - Current Medication List Current Medications: Active Medications Acetaminophen (Tylenol -) 325 mg PO Q24H PRN PRN Reason: PAIN Albuterol/Ipratropium (Duoneb -) 1 amp NEB Q4H PRN PRN Reason: SHORT OF BREATH/WHEEZING Budesonide/Formoterol Fumarate (Symbicort 160/4.5mcg -) 2 puff IH BID [facility] Last Admin: 08/24/16 21:46 Dose: Not Given Furosemide (Lasix Injection -) 40 mg IVPUSH DAILY [facility] Last Admin: 08/24/16 09:54 Dose: 40 mg Heparin Sodium (Porcine) (Heparin -) 5,000 unit SQ TID [facility] Last Admin: 08/25/16 06:47 Dose: 5,000 unit Lisinopril (Prinivil) 5 mg PO DAILY [facility] Last Admin: 08/24/16 09:53 Dose: 5 mg Methylprednisolone Sodium Succinate (Solu-Medrol -) 60 mg IVPB Q8H-IV [facility] Last Admin: 08/25/16 01:40 Dose: 60 mg Oxycodone HCl (Roxicodone -) 5 mg PO Q24H PRN PRN Reason: PAIN Pantoprazole Sodium (Protonix -) 40 mg PO DAILY [facility] Last Admin: 08/24/16 09:54 Dose: 40 mg Pregabalin (Lyrica -) 50 mg PO BID [facility] Last Admin: 08/24/16 21:44 Dose: 50 mg Spironolactone (Aldactone -) 25 mg PO DAILY [facility] - Objective Vital Signs: Vital Signs Temperature 98.2 F 08/25/16 06:00 Pulse Rate 104 H 08/25/16 06:00 Respiratory Rate 16 08/25/16 06:00 Blood Pressure 136/72 08/25/16 06:00 O2 Sat by Pulse Oximetry (%) 94 L 08/24/16 21:00 Constitutional: Yes: Well Nourished, Calm Eyes: Yes: WNL HENT: Yes: WNL Neck: Yes: WNL Cardiovascular: Yes: Regular Rate and Rhythm, S1, S2 Respiratory: Yes: Rales, Rhonchi (bilateral rales and rhonchi) Gastrointestinal: Yes: Normal Bowel Sounds, Soft Extremities: Yes: WNL Edema: No Labs: CBC, BMP 08/25/16 05:00 08/24/16 06:05 Assessment/Plan Problem List - Problems (1) Acute systolic (congestive) heart failure Code(s): I50.21 - ACUTE SYSTOLIC (CONGESTIVE) HEART FAILURE (2) COPD exacerbation Code(s): J44.1 - CHRONIC OBSTRUCTIVE PULMONARY DISEASE W (ACUTE) EXACERBATION (3) Smoker Code(s): F17.200 - NICOTINE DEPENDENCE, UNSPECIFIED, UNCOMPLICATED Assessment/Plan Acute on ?Chronic LV Systolic Heart Failure r/o Acute COPD Exacerbation Smoker - IV lasix - monitor urine output, creatinine - daily weights, I/Os - beta krystyna when euvolemic - medrol taper - inhaled bronchodilators PRN - DVT prophylaxis - PFTS outpatient - cardiac cath DR KING
[2016-08-25] MEDS: BUDESONIDE/FORMETEROL FUMARATE 160/4.5 mcg INHALER IH SCH ×2 (11:37→21:59)
[2016-08-25] MEDS ORDERED: FUROSEMIDE 40 MG/4 ML INJECTABLE VIAL ONE (15:30)
--- NOTE | 2016-08-25 20:20 | PN ---
Physical Exam: SUBJECTIVE: Patient seen and examined. OBJECTIVE: Vital Signs Period Temp Pulse Resp BP Sys/Garcia Pulse Ox Last 24 Hr 97.4 F-98.2 F 100-112 16-22 127-167/72-100 93-96 GENERAL: The patient is awake, alert, and fully oriented, in no acute distress. HEAD: Normal with no signs of trauma. EYES: PERRL, extraocular movements intact, sclera anicteric, conjunctiva clear. No ptosis. LUNGS: Bibasilar crackles. HEART: Regular rate and rhythm, S1, S2 without murmur, rub or gallop. ABDOMEN: Soft, nontender, nondistended, normoactive bowel sounds, no guarding, no rebound, no hepatosplenomegaly, no masses. EXTREMITIES: 2+ pulses, warm, well-perfused, 1+ b/l LE edema NEUROLOGICAL: Cranial nerves II through XII grossly intact. Normal speech, steady gait. Laboratory Results - last 24 hr 08/25/16 05:00 WBC 20.0 H RBC 4.93 Hgb 14.6 Hct 44.9 MCV 91.0 MCHC 32.5 RDW 14.2 Plt Count 309 MPV 10.4 Active Medications Generic Name Dose Route Start Last Admin Trade Name Freq PRN Reason Stop Dose Admin Acetaminophen 325 mg 08/23/16 03:54 Tylenol - PO Q24H PRN PAIN Albuterol/Ipratropium 1 amp 08/23/16 16:05 08/25/16 09:05 Duoneb - NEB 1 amp Q4H PRN Administration SHORT OF BREATH/WHEEZING Budesonide/Formoterol Fumarate 2 puff 08/23/16 10:00 08/25/16 11:37 Symbicort 160/4.5mcg - IH Not Given BID NATALI Furosemide 40 mg 08/26/16 06:00 08/25/16 15:33 Lasix Injection - IVPUSH 40 mg BID@0600,1400 NATALI Administration Heparin Sodium (Porcine) 5,000 unit 08/23/16 06:00 08/25/16 14:21 Heparin - SQ 5,000 unit TID NATALI Administration Lisinopril 5 mg 08/24/16 10:00 08/25/16 10:03 Prinivil PO 5 mg DAILY NATALI Administration Methylprednisolone Sodium Succinate 40 mg 08/25/16 10:05 08/25/16 17:51 Solu-Medrol - IVPB 40 mg Q8H-IV NATALI Administration Oxycodone HCl 5 mg 08/23/16 03:54 Roxicodone - PO Q24H PRN PAIN Pantoprazole Sodium 40 mg 08/24/16 10:00 08/25/16 10:03 Protonix - PO 40 mg DAILY NATALI Administration Pregabalin 50 mg 08/23/16 10:00 08/25/16 10:03 Lyrica - PO 50 mg BID NATALI Administration Spironolactone 25 mg 08/25/16 10:00 08/25/16 10:03 Aldactone - PO 25 mg DAILY NATALI Administration ASSESSMENT/PLAN: 55 year old male with PMH of COPD, herniated c-spine disc, and lumbar surgery, admitted for acute systolic heart failure. Acute systolic heart failure -- 08/23 Echo: LV severely reduced, EF 25-30%, severe global hypokinesis; RV normal; BLAE; moderate MR; trace to mild TR --increase IV Lasix to BID, strict I&Os, daily weights --renal function stable --continue Lisinopril --plan is for cardiac cath Acute COPD exacerbation --tapering steroids --continue Symbicort F/E/N Fluids: fluid restrict 1L Electrolytes: replete as indicated Nutrition: low sodium diet DVT prophylaxis: subq heparin, oob, ambulation Dispo: continues to require inpatient care. Full Code. Visit type - Emergency Visit Emergency Visit: Yes ED Registration Date: 08/23/16 Care time: The patient presented to the Emergency Department on the above date and was hospitalized for further evaluation of their emergent condition. - New Patient This patient is new to me today: Yes Date on this admission: 08/26/16 - Critical Care Critical Care patient: No
[2016-08-26] MEDS: methylPREDNISolone NA SUCC 40 MG/1 ML VIAL IVPB SCH ×2 (01:05→09:58)
[2016-08-26] MEDS: FUROSEMIDE 40 MG/4 ML INJECTABLE VIAL IVPUSH SCH ×2 (06:20→14:08)
[2016-08-26] MEDS: HEPARIN NA (PORCINE) 5,000 UNITS/ML 1ML VIAL SQ SCH ×3 (06:20→21:19)
--- NOTE | 2016-08-26 09:24 | PN ---
Progress Note, Physician - Current Medication List Current Medications: Active Medications Acetaminophen (Tylenol -) 325 mg PO Q24H PRN PRN Reason: PAIN Albuterol/Ipratropium (Duoneb -) 1 amp NEB Q4H PRN PRN Reason: SHORT OF BREATH/WHEEZING Last Admin: 08/25/16 09:05 Dose: 1 amp Budesonide/Formoterol Fumarate (Symbicort 160/4.5mcg -) 2 puff IH BID [facility] Last Admin: 08/25/16 21:59 Dose: Not Given Furosemide (Lasix Injection -) 40 mg IVPUSH BID@0600,1400 [facility] Last Admin: 08/26/16 06:20 Dose: 40 mg Heparin Sodium (Porcine) (Heparin -) 5,000 unit SQ TID [facility] Last Admin: 08/26/16 06:20 Dose: 5,000 unit Lisinopril (Prinivil) 5 mg PO DAILY [facility] Last Admin: 08/25/16 10:03 Dose: 5 mg Methylprednisolone Sodium Succinate (Solu-Medrol -) 40 mg IVPB Q8H-IV [facility] Last Admin: 08/26/16 01:05 Dose: 40 mg Pantoprazole Sodium (Protonix -) 40 mg PO DAILY [facility] Last Admin: 08/25/16 10:03 Dose: 40 mg Pregabalin (Lyrica -) 50 mg PO BID [facility] Last Admin: 08/25/16 21:54 Dose: 50 mg Spironolactone (Aldactone -) 25 mg PO DAILY [facility] Last Admin: 08/25/16 10:03 Dose: 25 mg - Objective Vital Signs: Vital Signs Temperature 97.7 F 08/26/16 09:10 Pulse Rate 106 H 08/26/16 09:10 Respiratory Rate 18 08/26/16 06:00 Blood Pressure 143/95 08/26/16 09:10 O2 Sat by Pulse Oximetry (%) 94 L 08/25/16 21:00 Eyes: Yes: WNL, Conjunctiva Clear, EOM Intact HENT: Yes: WNL, Atraumatic, Normocephalic Neck: Yes: WNL, Supple, Trachea Midline Cardiovascular: Yes: WNL, Regular Rate and Rhythm Respiratory: Yes: WNL, Regular, CTA Bilaterally Gastrointestinal: Yes: WNL, Normal Bowel Sounds Genitourinary: Yes: WNL Musculoskeletal: Yes: WNL Extremities: Yes: WNL Edema: No Integumentary: Yes: WNL Neurological: Yes: WNL, Alert, Oriented ...Motor Strength: WNL Psychiatric: Yes: WNL Labs: CBC, BMP 08/25/16 05:00 08/24/16 06:05 Assessment/Plan 55 M smoker w/ COPD admitted with several days worsening SOB, cough and associated chest tightness with cough. BNP also markedly elevated. Clinical picture c/w AECOPD with acute systolic CHF. REC: 1. IV lasix 2. Tele: to start low coreg 3.125 BID 3. Increase Lisinopril 4. K and Mg repleted 5. Steroids to taper as per pulm 6. For cath when optimized from volume and pulmonary standpoint
[2016-08-26 09:44] LABS: BASOPHIL 0.2 % (0-2.0); MCH 29.2 pg (25.7-33.7); MCHC 32.4 g/dl (32.0-35.9); MEAN CELL VOLUME 90.2 fl (80-96); MEAN PLT VOLUME 9.9 fl (7.5-11.1); NEUTROPHILS 86.7 % (42.8-82.8); PLATELET COUNT 318 K/MM3 (134-434); RDW 14.3 % (11.9-15.9); WHITE BLOOD COUNT 18.4 K/mm3 (4.0-10.0)
[2016-08-26] MEDS ORDERED: PT OWN MED DRAWER 7, Y5N ONE (09:55)
[2016-08-26] MEDS: PANTOPRAZOLE 40 MG TABLET (FP) PO SCH (09:58)
[2016-08-26] MEDS: PREGABALIN 50 MG CAPSULE PO SCH ×2 (09:58→21:19)
[2016-08-26] MEDS: CARVEDILOL 3.125 MG TABLET (FP) PO SCH ×2 (09:58→21:19)
[2016-08-26] MEDS: LISINOPRIL 5 MG TABLET (FP) PO SCH (09:59)
[2016-08-26] MEDS: BUDESONIDE/FORMETEROL FUMARATE 160/4.5 mcg INHALER IH SCH ×2 (09:59→21:19)
[2016-08-26] MEDS: SPIRONOLACTONE 25 MG TABLET (FP) PO SCH (09:59)
--- NOTE | 2016-08-26 10:05 | PN ---
Progress Note, Physician History of Present Illness: pulmonary alert,less congested,less cough - Current Medication List Current Medications: Active Medications Acetaminophen (Tylenol -) 325 mg PO Q24H PRN PRN Reason: PAIN Albuterol/Ipratropium (Duoneb -) 1 amp NEB Q4H PRN PRN Reason: SHORT OF BREATH/WHEEZING Last Admin: 08/25/16 09:05 Dose: 1 amp Budesonide/Formoterol Fumarate (Symbicort 160/4.5mcg -) 2 puff IH BID [facility] Last Admin: 08/26/16 09:59 Dose: Not Given Carvedilol (Coreg -) 3.125 mg PO BID [facility] Last Admin: 08/26/16 09:58 Dose: 3.125 mg Furosemide (Lasix Injection -) 40 mg IVPUSH BID@0600,1400 [facility] Last Admin: 08/26/16 06:20 Dose: 40 mg Heparin Sodium (Porcine) (Heparin -) 5,000 unit SQ TID [facility] Last Admin: 08/26/16 06:20 Dose: 5,000 unit Lisinopril (Prinivil) 5 mg PO DAILY [facility] Last Admin: 08/26/16 09:59 Dose: 5 mg Methylprednisolone Sodium Succinate (Solu-Medrol -) 40 mg IVPB Q8H-IV [facility] Last Admin: 08/26/16 09:58 Dose: 40 mg Pantoprazole Sodium (Protonix -) 40 mg PO DAILY [facility] Last Admin: 08/26/16 09:58 Dose: 40 mg Pregabalin (Lyrica -) 50 mg PO BID [facility] Last Admin: 08/26/16 09:58 Dose: 50 mg Spironolactone (Aldactone -) 25 mg PO DAILY [facility] Last Admin: 08/26/16 09:59 Dose: 25 mg - Objective Vital Signs: Vital Signs Temperature 97.7 F 08/26/16 09:10 Pulse Rate 106 H 08/26/16 09:10 Respiratory Rate 18 08/26/16 06:00 Blood Pressure 143/95 08/26/16 09:10 O2 Sat by Pulse Oximetry (%) 94 L 08/25/16 21:00 Constitutional: Yes: Well Nourished, Calm Eyes: Yes: WNL HENT: Yes: WNL Neck: Yes: WNL Cardiovascular: Yes: Regular Rate and Rhythm, S1, S2 Respiratory: Yes: Rhonchi (less rhonchi bilaterally) Gastrointestinal: Yes: Normal Bowel Sounds, Soft Extremities: Yes: WNL Edema: Yes Labs: CBC, BMP 08/26/16 09:32 Assessment/Plan Problem List - Problems (1) Acute systolic (congestive) heart failure Code(s): I50.21 - ACUTE SYSTOLIC (CONGESTIVE) HEART FAILURE clinically improving (2) COPD exacerbation Code(s): J44.1 - CHRONIC OBSTRUCTIVE PULMONARY DISEASE W (ACUTE) EXACERBATION improving (3) Smoker Code(s): F17.200 - NICOTINE DEPENDENCE, UNSPECIFIED, UNCOMPLICATED Assessment/Plan Acute on ?Chronic LV Systolic Heart Failure r/o Acute COPD Exacerbation Smoker - IV lasix - monitor urine output, creatinine - daily weights, I/Os - beta krystyna when euvolemic - continue medrol taper - inhaled bronchodilators PRN - DVT prophylaxis - PFTS outpatient - cardiac cath as per cardiology - chest x-ray DR KING
[2016-08-26 10:09] LABS: ALBUMIN 3.6 g/dl (3.4-5.0); BILIRUBIN,TOTAL 0.5 mg/dL (0.2-1.0); CALCIUM 8.5 mg/dL (8.5-10.1); CREATININE 1.4 mg/dL (0.7-1.3); MAGNESIUM 2.6 mg/dL (1.8-2.4); TOT PROT 6.9 g/dl (6.4-8.2)
[2016-08-26] MEDS ORDERED: methylPREDNISolone NA SUCC 40 MG/1 ML VIAL IVPB SCH ×2 (10:15→10:41)
[2016-08-26] MEDS: ALBUTEROL SO4 2.5/IPRATROPIUM 0.5 INH SOL 3 ML VIAL.NEB. NEB PRN (11:35)
[2016-08-26] MEDS ORDERED: CARVEDILOL 3.125 MG TABLET (FP) PO ONE (14:45)
--- NOTE | 2016-08-26 15:04 | PN ---
Physical Exam: SUBJECTIVE: Patient seen and examined at bedside. Discussed with patient his weight is up 3.2kg from yesterday despite doubling his IV Lasix. Patient admits he has been drinking lots of water even though told yesterday to restrict to 1L. Patient also admitted to eating a [employer] hero and turkey sausage. Lengthy discussion about fluid and salt intake. OBJECTIVE: Vital Signs Period Temp Pulse Resp BP Sys/Garcia Pulse Ox Last 24 Hr 97.4 F-98.1 F 94-112 18-22 127-159/79-100 94-96 GENERAL: The patient is awake, alert, and fully oriented, in no acute distress. HEAD: Normal with no signs of trauma. EYES: PERRL, extraocular movements intact, sclera anicteric, conjunctiva clear. No ptosis. LUNGS: Rhonchi throughout, scattered wheezes, worse than yesterday HEART: Regular rate and rhythm, S1, S2 without murmur, rub or gallop. ABDOMEN: Soft, nontender, nondistended, normoactive bowel sounds, no guarding, no rebound, no hepatosplenomegaly, no masses. EXTREMITIES: 2+ pedal and ankle edema, worse than yesterday NEUROLOGICAL: Cranial nerves II through XII grossly intact. Normal speech, steady gait. Laboratory Results - last 24 hr 08/26/16 08/26/16 09:32 09:32 WBC 18.4 H RBC 5.19 Hgb 15.2 Hct 46.8 MCV 90.2 MCHC 32.4 RDW 14.3 Plt Count 318 MPV 9.9 Neutrophils % 86.7 H Lymphocytes % 6.7 L Monocytes % 6.4 D Eosinophils % 0.0 D Basophils % 0.2 Sodium 138 Potassium 4.3 Chloride 101 Carbon Dioxide 27 Anion Gap 10 BUN 34 H Creatinine 1.4 H Creat Clearance w eGFR 52.62 Random Glucose 216 H D Calcium 8.5 Magnesium 2.6 H Total Bilirubin 0.5 AST 27 ALT 66 D Alkaline Phosphatase 85 Total Protein 6.9 Albumin 3.6 Active Medications Generic Name Dose Route Start Last Admin Trade Name Freq PRN Reason Stop Dose Admin Acetaminophen 325 mg 08/23/16 03:54 Tylenol - PO Q24H PRN PAIN Albuterol/Ipratropium 1 amp 08/23/16 16:05 08/26/16 11:35 Duoneb - NEB 1 amp Q4H PRN Administration SHORT OF BREATH/WHEEZING Budesonide/Formoterol Fumarate 2 puff 08/23/16 10:00 08/26/16 09:59 Symbicort 160/4.5mcg - IH Not Given BID NATALI Carvedilol 3.125 mg 08/26/16 10:00 08/26/16 09:58 Coreg - PO 3.125 mg BID NATALI Administration Furosemide 40 mg 08/26/16 06:00 08/26/16 14:08 Lasix Injection - IVPUSH 40 mg BID@0600,1400 NATALI Administration Heparin Sodium (Porcine) 5,000 unit 08/23/16 06:00 08/26/16 14:08 Heparin - SQ 5,000 unit TID NATALI Administration Insulin Aspart 0 units 08/26/16 16:30 Novolog Vial SQ ACHS [facility] Protocol Lisinopril 5 mg 08/24/16 10:00 08/26/16 09:59 Prinivil PO 5 mg DAILY NATALI Administration Methylprednisolone Sodium Succinate 40 mg 08/26/16 10:41 Solu-Medrol - IVPB BID NATALI Pantoprazole Sodium 40 mg 08/24/16 10:00 08/26/16 09:58 Protonix - PO 40 mg DAILY [facility]ALI Administration Pregabalin 50 mg 08/23/16 10:00 08/26/16 09:58 Lyrica - PO 50 mg BID NATALI Administration Spironolactone 25 mg 08/25/16 10:00 08/26/16 09:59 Aldactone - PO 25 mg DAILY NATALI Administration ASSESSMENT/PLAN: 55 year old male with PMH of COPD, herniated c-spine disc, and lumbar surgery, admitted for acute systolic heart failure. Acute systolic heart failure -- 08/23 Echo: LV severely reduced, EF 25-30%, severe global hypokinesis; RV normal; BLAE; moderate MR; trace to mild TR --patient up 3.2kg today due to excessive free water intake and salty foods; patient education persuasively delivered and he now gets the point --continue IV Lasix 40mg BID, strict I&Os, daily weights --renal function stable --continue Lisinopril --per cardiology start Coreg --plan is for cardiac cath Acute COPD exacerbation --tapering steroids --continue Symbicort F/E/N Fluids: fluid restrict 1L Electrolytes: replete as indicated Nutrition: low sodium diet DVT prophylaxis: subq heparin, oob, ambulation Dispo: continues to require inpatient care. Full Code. Visit type - Emergency Visit Emergency Visit: Yes ED Registration Date: 08/23/16 Care time: The patient presented to the Emergency Department on the above date and was hospitalized for further evaluation of their emergent condition. - New Patient This patient is new to me today: No - Critical Care Critical Care patient: No
[2016-08-26] MEDS ORDERED: INSULIN SLIDING SCALE (NOVOLOG) 1 VIAL SQ SCH (16:30)
[2016-08-26] MEDS ORDERED: NICOTINE 21 MG/24 HOURS TOPICAL PATCH TD SCH (18:30)
[2016-08-26 19:12] VITALS: TEMP 98.1
[2016-08-26 22:59] VITALS: BP 141/89; PULSE 104
--- NOTE | 2016-08-26 23:51 | EKG ---
Test Reason : Blood Pressure : / mmHG Vent. Rate : 100 BPM Atrial Rate : 100 BPM P-R Int : 166 ms QRS Dur : 098 ms QT Int : 380 ms P-R-T Axes : 073 049 071 degrees QTc Int : 490 ms SINUS RHYTHM WITH OCCASIONAL PREMATURE VENTRICULAR COMPLEXES BIATRIAL ENLARGEMENT T WAVE ABNORMALITY, CONSIDER ANTERIOR ISCHEMIA PROLONGED QT ABNORMAL ECG WHEN COMPARED WITH ECG OF 23-AUG-2016 14:54, PREMATURE VENTRICULAR COMPLEXES ARE NOW PRESENT NONSPECIFIC T WAVE ABNORMALITY, IMPROVED IN LATERAL LEADS Confirmed by SADE CUNNINGHAM MD ([id number]) on 08/26/2016 11:51:05 PM Referred By: Lauren SANCHEZ Confirmed By:SADE CUNNINGHAM MD
--- NOTE | 2016-08-27 17:06 | EKG ---
Test Reason : Blood Pressure : / mmHG Vent. Rate : 100 BPM Atrial Rate : 100 BPM P-R Int : 194 ms QRS Dur : 096 ms QT Int : 384 ms P-R-T Axes : 069 036 080 degrees QTc Int : 495 ms NORMAL SINUS RHYTHM BIATRIAL ENLARGEMENT NONSPECIFIC T WAVE ABNORMALITY PROLONGED QT ABNORMAL ECG WHEN COMPARED WITH ECG OF 23-AUG-2016 09:47, T WAVE VARIATION Confirmed by GONZALEZ DAVIDSON MD ([id number]) on 08/27/2016 5:06:00 PM Referred By: Confirmed By:GONZALEZ DAVIDSON MD
--- NOTE | 2016-08-29 18:48 | DS ---
Physical Examination Vital Signs: Physical Exam: SUBJECTIVE: Patient seen and examined at bedside. Discussed with patient his weight is up 3.2kg from yesterday despite doubling his IV Lasix. Patient admits he has been drinking lots of water even though told yesterday to restrict to 1L. Patient also admitted to eating a [employer] hero and turkey sausage. Lengthy discussion about fluid and salt intake. OBJECTIVE: Vital Signs Period Temp Pulse Resp BP Sys/Garcia Pulse Ox Last 24 Hr 97.4 F-98.1 F 94-112 18-22 127-159/79-100 94-96 GENERAL: The patient is awake, alert, and fully oriented, in no acute distress. HEAD: Normal with no signs of trauma. EYES: PERRL, extraocular movements intact, sclera anicteric, conjunctiva clear. No ptosis. LUNGS: Rhonchi throughout, scattered wheezes, worse than yesterday HEART: Regular rate and rhythm, S1, S2 without murmur, rub or gallop. ABDOMEN: Soft, nontender, nondistended, normoactive bowel sounds, no guarding, no rebound, no hepatosplenomegaly, no masses. EXTREMITIES: 2+ pedal and ankle edema, worse than yesterday NEUROLOGICAL: Cranial nerves II through XII grossly intact. Normal speech, steady gait. Laboratory Results - last 24 hr 08/26/16 08/26/16 09:32 09:32 WBC 18.4 H RBC 5.19 Hgb 15.2 Hct 46.8 MCV 90.2 MCHC 32.4 RDW 14.3 Plt Count 318 MPV 9.9 Neutrophils % 86.7 H Lymphocytes % 6.7 L Monocytes % 6.4 D Eosinophils % 0.0 D Basophils % 0.2 Sodium 138 Potassium 4.3 Chloride 101 Carbon Dioxide 27 Anion Gap 10 BUN 34 H Creatinine 1.4 H Creat Clearance w eGFR 52.62 Random Glucose 216 H D Calcium 8.5 Magnesium 2.6 H Total Bilirubin 0.5 AST 27 ALT 66 D Alkaline Phosphatase 85 Total Protein 6.9 Albumin 3.6 Active Medications Generic Name Dose Route Start Last Admin Trade Name Freq PRN Reason Stop Dose Admin Acetaminophen 325 mg 08/23/16 03:54 Tylenol - PO Q24H PRN PAIN Albuterol/Ipratropium 1 amp 08/23/16 16:05 08/26/16 11:35 Duoneb - NEB 1 amp Q4H PRN Administration SHORT OF BREATH/WHEEZING Budesonide/Formoterol Fumarate 2 puff 08/23/16 10:00 08/26/16 09:59 Symbicort 160/4.5mcg - IH Not Given BID NATALI Carvedilol 3.125 mg 08/26/16 10:00 08/26/16 09:58 Coreg - PO 3.125 mg BID [facility]ALI Administration Furosemide 40 mg 08/26/16 06:00 08/26/16 14:08 Lasix Injection - IVPUSH 40 mg BID@0600,1400 [facility] Administration Heparin Sodium (Porcine) 5,000 unit 08/23/16 06:00 08/26/16 14:08 Heparin - SQ 5,000 unit TID [facility] Administration Insulin Aspart 0 units 08/26/16 16:30 Novolog Vial SQ ACHS [facility] Protocol Lisinopril 5 mg 08/24/16 10:00 08/26/16 09:59 Prinivil PO 5 mg DAILY [facility] Administration Methylprednisolone Sodium Succinate 40 mg 08/26/16 10:41 Solu-Medrol - IVPB BID [facility]I Pantoprazole Sodium 40 mg 08/24/16 10:00 08/26/16 09:58 Protonix - PO 40 mg DAILY [facility] Administration Pregabalin 50 mg 08/23/16 10:00 08/26/16 09:58 Lyrica - PO 50 mg BID [facility] Administration Spironolactone 25 mg 08/25/16 10:00 08/26/16 09:59 Aldactone - PO 25 mg DAILY [facility] Administration ASSESSMENT/PLAN: 55 year old male with PMH of COPD, herniated c-spine disc, and lumbar surgery, admitted for acute systolic heart failure. Acute systolic heart failure -- 08/23 Echo: LV severely reduced, EF 25-30%, severe global hypokinesis; RV normal; BLAE; moderate MR; trace to mild TR --patient up 3.2kg today due to excessive free water intake and salty foods; patient education persuasively delivered and he now gets the point --continue IV Lasix 40mg BID, strict I&Os, daily weights --renal function stable --continue Lisinopril --per cardiology start Coreg --plan is for cardiac cath Acute COPD exacerbation --tapering steroids --continue Symbicort F/E/N Fluids: fluid restrict 1L Electrolytes: replete as indicated Nutrition: low sodium diet Labs: CBC, BMP 08/26/16 09:32 08/26/16 09:32 Discharge Summary Reason For Visit: CHF - Instructions Referrals: Tucker Giang [Primary Care Provider] - Disposition: TRANSFER ACUTE CARE/OTHER HOSP - Home Medications Comprehensive Discharge Medication List: Ambulatory Orders Albuterol Sulfate Inhaler - [Ventolin HFA Inhaler -] 1 - 2 inh PO QID PRN Budesonide/Formeterol Fumarate [SYMBICORT 160/4.5mcg -] 2 inh PO DAILY 08/23/16 Pregabalin [Lyrica] 50 mg PO BID 08/23/16 This patient is new to me today: No Emergency Visit: Yes ED Registration Date: 08/23/16 Care time: The patient presented to the Emergency Department on the above date and was hospitalized for further evaluation of their emergent condition. Critical Care patient: No - Discharge Referral Referred to [facility] No
== END 2016-08-26 22:15 | disposition short-term general hospital (02) | DRG 190 ==
LOC: JER 21:28 → JERBED 08-23 01:38 → J4W 08-23 17:00
PROVIDERS: ADMIT Internal Medicine; ATTEND Nurse Practitioner Acute Care
DX: J44.1 Chronic obstructive pulmonary disease with (acute) exacerbation (principal); I50.21 Acute systolic (congestive) heart failure; I34.0 Nonrheumatic mitral (valve) insufficiency; I36.1 Nonrheumatic tricuspid (valve) insufficiency; F17.210 Nicotine dependence, cigarettes, uncomplicated
CPT/HCPCS: 36415; 71010-TC; 71020-TC; 80048; 80053; 82550; 83735; 83880; 84484; 85025; 85027; 93005; 93010; 93306-TC; 94640; 99284-25; J1644

== ENCOUNTER 2017-02-22 10:14 | Emergency (ER) | payer OTHER, BC ==
[2017-02-22 10:20] VITALS: BP 151/81; PULSE 98; BMI 34.8
--- NOTE | 2017-02-22 11:14 | PDOC ---
History of Present Illness - General Chief Complaint: Injury Stated Complaint: HURT RIGHT ANKLE Time Seen by Provider: 02/22/17 10:55 History Source: Patient Exam Limitations: No Limitations - History of Present Illness Initial Comments: 02/22/17 11:17 02/22/17 11:29 My chief complaint: Right foot pain History of present illness: Patient is a 56-year-old male with a history of chronic left knee pain, herniated lumbar disks with sciatica, laminectomy lumbar spine, CHF, hypertension here today complaining of sudden onset of right foot pain when getting out of his truck today at work. The pain persisted 20 minutes than subsided, than reoccurred by not as intense. He reports that he just stepped out of the truck ball of the foot on the ground and immediately. Pt. has had a splinter in his right hand at the proximal aspect of his right thumb only one week area is tender and raised patient is asking for this to be removed. Pt. is up to date with tetanus. Pt. denies twisting his right foot or ankle. He reports having intermittent right sided lower back pain and is supposed to have an EMG of his right leg soon. He is supposed to have an MRI of the spine. Patient denies any radiation of pain down his right buttocks or leg today or numbness of legs or any saddle anesthesia or any incontinency. Presently denies any pain in his right foot. 02/22/17 12:02 02/22/17 12:19 Timing/Duration: intermittent (rt. foot, splinter rt. hand ) Severity: moderate Associated Symptoms: reports: other (rt.hand splinter) Past History - Past Medical History Allergies/Adverse Reactions: Allergies Allergy/AdvReac Type Severity Reaction Status Date / Time No Known Allergies Allergy Verified 02/22/17 10:18 Home Medications: Ambulatory Orders Pregabalin [Lyrica] 50 mg PO BID 08/23/16 Anemia: No Asthma: No Cancer: No Cardiac Disorders: Yes CVA: No COPD: Yes CHF: No Dementia: No Diabetes: No GI Disorders: No Disorders: No HTN: No Hypercholesterolemia: No Liver Disease: No Seizures: No Thyroid Disease: No Other medical history: back pain - Surgical History Abdominal Surgery: No Appendectomy: No Cardiac Surgery: No Cholecystectomy: No Lung Surgery: No Neurologic Surgery: No Orthopedic Surgery: Yes (LEFT KNEE ARTHROSCOPY 2011) - Psycho/Social/Smoking Cessation Hx Anxiety: No Suicidal Ideation: No Smoking Status: Yes Smoking History: Current every day smoker Have you smoked in the past 12 months: Yes Number of Cigarettes Smoked Daily: 30 Information on smoking cessation initiated: Yes 'Breaking Loose' booklet given: 02/22/17 Hx Alcohol Use: No Drug/Substance Use Hx: No Substance Use Type: None Hx Substance Use Treatment: No Review of Systems - Review of Systems Able to Perform ROS?: Yes Constitutional: No: Symptoms Reported HEENTM: No: Symptoms Reported Respiratory: No: Symptoms reported Cardiac (ROS): No: Symptoms Reported ABD/GI: No: Symptoms Reported : No: Symptoms Reported Musculoskeletal: Yes: Back Pain (rt. sided lower back intermittent none today ) , Joint Pain (rt. foot intermittent since this am). No: Joint Swelling Integumentary: Yes: Other (rt. palm proximal to thumb ) Neurological: No: Symptoms reported *Physical Exam - Vital Signs Last Vital Signs Temp Pulse Resp BP Pulse Ox 98 H 19 151/81 99 02/22/17 10:16 02/22/17 10:16 02/22/17 10:16 02/22/17 10:16 - Physical Exam General Appearance: Yes: Appropriately Dressed Respiratory/Chest: positive: Lungs Clear, Normal Breath Sounds Cardiovascular: positive: Regular Rhythm, Regular Rate, S1, S2 Vascular Pulses: Dorsalis-Pedis (R): 4+ Comments:: 02/22/17 11:13 radial pulse 4 + rt. Musculoskeletal: positive: Normal Inspection. negative: CVA Tenderness, CVA Tenderness (R), CVA Tenderness (L) Extremity: positive: Normal Capillary Refill, Normal Inspection, Normal Range of Motion. negative: Tender, Swelling Integumentary: positive: Normal Color, Other (rt. hand proximal to thumb/ palmar aspect pea size calleous raised area, slightly tender) Neurologic: positive: Alert, Normal Response, Motor Strength 5/5 (b/l legs), Respond to painful stimul, Responsive, Other (negative SLR b/l, pain right lower back when lowering rt. leg). negative: Numbness, Sensory Deficit (legs b/ l ) Deep Tendon Reflexes: Knee (L): 2+, Knee (R): 3+ Procedures - Consent Consent obtained: Verbal, From Patient - Additional Procedures Progress: 02/22/17 12:05 cleansed rt. hand proximal palmar aspect wit betadine than cleansed injected 2 mL's of lidocaine 1% to area using 18 gauge unroofed area splinter removed, area irrigated with NS 0.9%, dried area bacitracin oint, bandaid 02/22/17 12:08 Medical Decision Making - Medical Decision Making 02/22/17 12:01 02/22/17 12:02 Patient is a 56-year-old male with a history of tonic left knee pain, herniated lumbar disks with sciatica, laminectomy lumbar spine, Cardiomyopathy, hypertension here today complaining of sudden onset of right foot pain when getting out of his truck today at work. The pain persisted 20 minutes than subsided, than reoccurred by not as intense. He reports that he just stepped out of the truck ball of the foot on the ground and immediately. Pt. has had a splinter in his right hand at the proximal aspect of his right thumb only one week area is tender and raised patient is asking for this to be removed. Pt. is up to date with tetanus. Pt. denies twisting his right foot or ankle. He reports having intermittent right sided lower back pain and is supposed to have an EMG of his right leg soon. He is supposed to have an MRI of the spine. Patient denies any radiation of pain down his right buttocks or leg today or numbness of legs or any saddle anesthesia or any incontinency. Pt. denies rt. foot or ankle pain presently. rt. foot pain rt. hand splinter removal PLAN: xray rt. foot/ankle no acute pathology noted splinter removal rt. hand proximal to rt. thumb follow up with orthopedist as soon as possible 02/22/17 12:20 *DC/Admit/Observation/Transfer Diagnosis at time of Disposition: Splinter in skin Acute foot pain Qualifiers: Laterality: right Qualified Code(s): M79.671 - Pain in right foot - Discharge Dispostion Disposition: HOME Condition at time of disposition: Stable - Referrals Referrals: Tucker Giang [Primary Care Provider] - - Patient Instructions Additional Instructions: Cleanse area where splinter was removed twice daily with antibacterial soap and water and apply tiny amount of bacitracin ointment and cover with Band-Aid when out of the home let air out at night until healed follow-up with orthopedist as soon as possible or evaluation of pain return to emergency room if symptoms worsen or new symptoms develop ] Acetaminophen as needed as directed by shut off worker for pain Patient voiced understanding of discharge instructions and all questions were answered - Post Discharge Activity Work/School Note: Back to Work
== END 2017-02-22 12:28 | disposition home or self-care (01) ==
LOC: JERFT 10:14
PROC: 0HCFXZZ Extirpation of Matter from Right Hand Skin, External Approach (ICD-10-PCS; principal; 2017-02-22)
DX: S60.551A Superficial foreign body of right hand, initial encounter (principal); M79.671 Pain in right foot; V68.4XXA Person boarding or alighting a heavy transport vehicle injured in noncollision transport accident, initial encounter; Y92.488 Other paved roadways as the place of occurrence of the external cause; Y99.0 Civilian activity done for income or pay; Y93.89 Activity, other specified; W45.8XXA Other foreign body or object entering through skin, initial encounter; Y92.89 Other specified places as the place of occurrence of the external cause
CPT/HCPCS: 73610-TC-RT; 73630-TC-RT; 99281-25

== ENCOUNTER 2017-03-13 13:07 | Emergency (ER) | payer OTHER, BC ==
[2017-03-13 13:11] VITALS: TEMP 97.7; BMI 34.2
[2017-03-13] MEDS ORDERED: morphine CARPU-JECT 4 MG/1 ML DISP.SYRIN IVPUSH ONE (14:26)
--- NOTE | 2017-03-13 14:31 | PDOC ---
History of Present Illness - General History Source: Patient - History of Present Illness Timing/Duration: reports: constant Quality: reports: severe Abdominal Pain Onset Location: reports: periumbilical <Gita MondragonVielka - Last Filed: 03/13/17 18:54> <Kait Peace - Last Filed: 03/15/17 21:08> - General Chief Complaint: Pain Stated Complaint: BACK PAIN (HERNIA) Time Seen by Provider: 03/13/17 13:44 Past History - Past Medical History Anemia: No Asthma: No Cancer: No Cardiac Disorders: Yes CVA: No COPD: Yes CHF: No Dementia: No Diabetes: No GI Disorders: No Disorders: No HTN: No Hypercholesterolemia: No Liver Disease: No Seizures: No Thyroid Disease: No - Surgical History Abdominal Surgery: Yes (HERNIA) Appendectomy: No Cardiac Surgery: No Cholecystectomy: No Lung Surgery: No Neurologic Surgery: No Orthopedic Surgery: Yes (LEFT KNEE ARTHROSCOPY 2011) - Psycho/Social/Smoking Cessation Hx Anxiety: No Suicidal Ideation: No Smoking Status: Yes Smoking History: Current every day smoker Have you smoked in the past 12 months: Yes Number of Cigarettes Smoked Daily: 40 Information on smoking cessation initiated: Yes 'Breaking Loose' booklet given: 03/13/17 Hx Alcohol Use: Yes (SOCIAL) Drug/Substance Use Hx: No Substance Use Type: None Hx Substance Use Treatment: No <AlannaJohnathon - Last Filed: 03/13/17 18:54> <Kait Peace - Last Filed: 03/15/17 21:08> - Past Medical History Allergies/Adverse Reactions: Allergies Allergy/AdvReac Type Severity Reaction Status Date / Time No Known Allergies Allergy Verified 03/13/17 13:11 Home Medications: Ambulatory Orders Pregabalin [Lyrica] 50 mg PO BID 08/23/16 Furosemide [Lasix] 40 mg PO DAILY 03/13/17 Lisinopril 5 mg PO DAILY 03/13/17 Oxycodone HCl/Acetaminophen [Percocet 5-325 mg Tablet] 1 - 2 tab PO Q4H Spironolactone 25 mg PO DAILY 03/13/17 Tramadol HCl 50 mg PO Q6H #12 tablet MDD 200 mg 03/13/17 Review of Systems - Review of Systems Constitutional: No: Chills, Fever ABD/GI: No: Constipated, Diarrhea, Nausea, Vomiting : No: Dysuria <Johnathon Mondragon - Last Filed: 03/13/17 18:54> *Physical Exam - Vital Signs Last Vital Signs Temp Pulse Resp BP Pulse Ox 97.7 F 100 H 20 124/65 97 03/13/17 13:08 03/13/17 13:08 03/13/17 13:08 03/13/17 13:08 03/13/17 13:08 - Physical Exam General Appearance: Yes: Appropriately Dressed. No: Apparent Distress HEENT: positive: Normal Voice Neck: positive: Supple Respiratory/Chest: positive: Lungs Clear, Normal Breath Sounds. negative: Respiratory Distress Cardiovascular: positive: Regular Rate, S1, S2 Gastrointestinal/Abdominal: positive: Hernia (painful umbilical hernia, unable to reduce 2/2 pain) Musculoskeletal: negative: CVA Tenderness Extremity: positive: Normal Inspection Integumentary: positive: Dry, Warm Neurologic: positive: Fully Oriented, Alert, Normal Mood/Affect <Johnathon Mondragon - Last Filed: 03/13/17 18:54> - Vital Signs Last Vital Signs Temp Pulse Resp BP Pulse Ox 97.7 F 102 H 20 122/75 94 L 03/13/17 13:08 03/13/17 18:59 03/13/17 18:59 03/13/17 18:59 03/13/17 18:59 <Kait Peace - Last Filed: 03/15/17 21:08> ED Treatment Course - LABORATORY CBC & Chemistry Diagram: 03/13/17 15:10 03/13/17 15:10 <Johnathon Mondragon - Last Filed: 03/13/17 18:54> - LABORATORY CBC & Chemistry Diagram: 03/13/17 15:10 03/13/17 15:10 - ADDITIONAL ORDERS Additional order review: 03/13/17 15:10 RBC 4.62 MCV 90.8 MCHC 34.5 RDW 13.3 MPV 9.3 Neutrophils % 69.3 D Lymphocytes % 19.1 D Monocytes % 8.5 Eosinophils % 2.4 D Basophils % 0.7 D - Medications Given in the ED: ED Medications Discontinued Medications Generic Name Dose Route Start Last Admin Trade Name Freq PRN Reason Stop Dose Admin Sodium Chloride 1,000 mls @ 1,000 mls/hr 03/13/17 15:52 03/13/17 16:33 Normal Saline - IV 03/13/17 16:51 1,000 mls/hr ASDIR STA Administration Morphine Sulfate 4 mg 03/13/17 14:26 03/13/17 15:05 Morphine Injection - IVPUSH 03/13/17 14:27 Not Given ONCE ONE <Kait Peace - Last Filed: 03/15/17 21:08> Medical Decision Making - Medical Decision Making 03/13/17 14:29 56 yo M, morbid obesity, umbilical hernia, p/w severe pain to site shortly after picking up an AC at work today. No n/v/f/c or change in BM See exam R/o incarcerated hernia -pain control -labs -CT 03/13/17 18:57 CT w/ small umbilical hernia w/ non-obstructed loop of small bowel. No s/o obstruction. Patient informed of results. Denies any pain at this time and declines pain medication. Will discharge to follow-up with surgery this week. Strict return precautions given to patient 03/13/17 18:57 03/13/17 18:57 <Johnathon Mondragon - Last Filed: 03/13/17 18:54> *DC/Admit/Observation/Transfer <AlannaJohnathon - Last Filed: 03/13/17 18:54> - Attestations Physician Attestion: I reviewed the case with the mid-level practitioner and agree with the mid- level practitioner's assessment, diagnosis and disposition. <Kait Peace - Last Filed: 03/15/17 21:08> Diagnosis at time of Disposition: Abdominal pain Qualifiers: Abdominal location: periumbilical Qualified Code(s): R10.33 - Periumbilical pain - Discharge Dispostion Disposition: HOME Condition at time of disposition: Improved - Prescriptions Prescriptions: Tramadol HCl 50 mg PO Q6H #12 tablet MDD 200 mg - Referrals Referrals: Luiz Peterson [Staff Physician] - - Patient Instructions Printed Discharge Instructions: Abdominal Hernia Additional Instructions: Take tramadol for pain as needed and f/u with Dr Peterson of surgery this week. It is very important that you return to the ED immediately for persistent/ worsening pain, constipation, nausea, vomiting, fever or chills
[2017-03-13 15:31] LABS: BASOPHIL 0.7 % (0-2.0); EOSINOPHIL 2.4 % (0-4.5); MCH 31.3 pg (25.7-33.7); MCHC 34.5 g/dl (32.0-35.9); MEAN CELL VOLUME 90.8 fl (80-96); MEAN PLT VOLUME 9.3 fl (7.5-11.1); NEUTROPHILS 69.3 % (42.8-82.8); PLATELET COUNT 239 K/MM3 (134-434); RDW 13.3 % (11.9-15.9); WHITE BLOOD COUNT 9.3 K/mm3 (4.0-10.0)
[2017-03-13 15:43] LABS: INR 0.92 (0.82-1.09); PROTHROMBIN TIME (PATIENT) 10.1 SEC (9.98-11.88)
[2017-03-13 15:44] LABS: ALBUMIN 3.6 g/dl (3.4-5.0); ANION GAP 8 (8-16); CALCIUM 8.7 mg/dL (8.5-10.1); CO2 28 mmol/L (21-32); GLUCOSE,RANDOM 101 mg/dL (74-106)
[2017-03-13 15:47] LABS: CREATININE 1.4 mg/dL (0.7-1.3); SGOT/AST 23 U/L (15-37); SGPT/ALT 31 U/L (12-78)
[2017-03-13 15:49] LABS: ALK PHOS 85 U/L (45-117); BILIRUBIN,TOTAL 0.6 mg/dL (0.2-1.0); TOT PROT 6.8 g/dl (6.4-8.2)
[2017-03-13 15:51] LABS: URINE APPEARANCE CLEAR; URINE BILIRUBIN NEGATIVE (NEGATIVE); URINE BLOOD 1+ (NEGATIVE); URINE COLOR LTYELLOW; URINE GLUCOSE (UA) NEGATIVE (NEGATIVE); URINE KETONE NEGATIVE (NEGATIVE); URINE LEUK ESTERASE NEGATIVE (NEGATIVE); URINE NITRITE NEGATIVE (NEGATIVE); URINE PROTEIN NEGATIVE (NEGATIVE); URINE UROBILINOGEN NEGATIVE mg/dL (0.2-1.0)
[2017-03-13] MEDS ORDERED: SODIUM CHLORIDE 1,000 ML IV STA (15:52)
[2017-03-13 16:00] LABS: URINE HYALINE CAST 3 /lpf; URINE RBC 1 /hpf (0-3)
[2017-03-13 19:00] VITALS: BP 122/75; PULSE 102
== END 2017-03-13 19:08 | disposition home or self-care (01) ==
LOC: JER 13:07
PROC: 3E0337Z Introduction of Electrolytic and Water Balance Substance into Peripheral Vein, Percutaneous Approach (ICD-10-PCS; principal; 2017-03-13)
DX: R10.33 Periumbilical pain (principal); X58.XXXA Exposure to other specified factors, initial encounter; Y93.89 Activity, other specified; Y92.9 Unspecified place or not applicable; J44.9 Chronic obstructive pulmonary disease, unspecified; F17.210 Nicotine dependence, cigarettes, uncomplicated
CPT/HCPCS: 36415; 74177-TC; 80053; 81003; 81015; 85025; 85610; 86850; 86900; 86901; 99282-25; Q9967

== ENCOUNTER 2017-05-28 13:08 | Emergency (ER) | payer OTHER, BC ==
[2017-05-28 13:12] VITALS: BP 133/84; PULSE 99; TEMP 98.2; BMI 34.2
[2017-05-28] MEDS ORDERED: IBUPROFEN 400 MG TABLET (FP) PO ONE ×2 (15:34→15:36)
--- NOTE | 2017-05-28 15:39 | PDOC ---
History of Present Illness - General Chief Complaint: Injury Stated Complaint: INJURY Time Seen by Provider: 05/28/17 15:07 History Source: Patient Exam Limitations: No Limitations - History of Present Illness Initial Comments: 05/28/17 15:34 56 yr male with c/o left knee twisted at work getting out of the van today. Pt has history of knee surgery 6hyrs ago. This occurred at 10am today. Pt took no pain meds, pt continued to work,now with swelling and pain . 05/28/17 15:34 Past History - Past Medical History Allergies/Adverse Reactions: Allergies Allergy/AdvReac Type Severity Reaction Status Date / Time No Known Allergies Allergy Verified 05/28/17 13:12 Home Medications: Ambulatory Orders Pregabalin [Lyrica] 50 mg PO BID 08/23/16 Furosemide [Lasix] 40 mg PO DAILY 03/13/17 Lisinopril 5 mg PO DAILY 03/13/17 Oxycodone HCl/Acetaminophen [Percocet 5-325 mg Tablet] 1 - 2 tab PO Q4H Spironolactone 25 mg PO DAILY 03/13/17 Tramadol HCl 50 mg PO Q6H #12 tablet MDD 200 mg 03/13/17 Anemia: No Asthma: No Cancer: No Cardiac Disorders: Yes CVA: No COPD: Yes CHF: No Dementia: No Diabetes: No GI Disorders: No Disorders: No HTN: No Hypercholesterolemia: No Liver Disease: No Seizures: No Thyroid Disease: No - Surgical History Abdominal Surgery: Yes (HERNIA) Appendectomy: No Cardiac Surgery: No Cholecystectomy: No Lung Surgery: No Neurologic Surgery: No Orthopedic Surgery: Yes (LEFT KNEE ARTHROSCOPY 2011) - Suicide/Smoking/Psychosocial Hx Smoking Status: Yes Smoking History: Current every day smoker Have you smoked in the past 12 months: Yes Number of Cigarettes Smoked Daily: 40 Information on smoking cessation initiated: Yes 'Breaking Loose' booklet given: 05/28/17 Hx Alcohol Use: No Drug/Substance Use Hx: No Substance Use Type: None Hx Substance Use Treatment: No Review of Systems - Review of Systems Able to Perform ROS?: Yes Is the patient limited Macedonian proficient: No Constitutional: No: Symptoms Reported HEENTM: No: Symptoms Reported Respiratory: No: Symptoms reported, Other Cardiac (ROS): No: Symptoms Reported ABD/GI: No: Symptoms Reported : No: Symptoms Reported Musculoskeletal: Yes: See HPI *Physical Exam - Vital Signs Last Vital Signs Temp Pulse Resp BP Pulse Ox 98.2 F 99 H 18 133/84 96 05/28/17 13:11 05/28/17 13:11 05/28/17 13:11 05/28/17 13:11 05/28/17 13:11 - Physical Exam General Appearance: Yes: Nourished, Appropriately Dressed HEENT: positive: EOMI, JOVAN Neck: positive: Supple Respiratory/Chest: positive: Lungs Clear, Normal Breath Sounds Gastrointestinal/Abdominal: positive: Normal Bowel Sounds, Soft Musculoskeletal: positive: Normal Inspection Extremity: positive: Normal Capillary Refill, Tender (lateral knee left side, neg patella tenderness, neg laxity nv intact ), Other (decreased extension due to pain ) Integumentary: positive: Normal Color, Dry, Warm Neurologic: positive: Fully Oriented, Alert, Normal Mood/Affect, Normal Response , Motor Strength 5/5 Procedures - Splinting Pre-Made Type: knee immobilizer ED Treatment Course - RADIOLOGY Radiology Studies Ordered: Category Date Time Status KNEE 3 POS-LEFT [RAD] Stat Radiology 05/28/17 15:08 Taken Medical Decision Making - Medical Decision Making 05/28/17 15:37 cc: twisted left knee at work stepping out of the van pt will follow with his orthopedist will rest, ice , elevate and take ibuprofen 05/28/17 18:44 knee immobilizer placed pt ambulatory with limp *DC/Admit/Observation/Transfer Diagnosis at time of Disposition: Effusion of left knee Left knee sprain Qualifiers: Encounter type: initial encounter Involved ligament of knee: unspecified ligament Qualified Code(s): S83.92XA - Sprain of unspecified site of left knee, initial encounter - Discharge Dispostion Disposition: HOME Condition at time of disposition: Good - Referrals Referrals: Tucker Giang [Primary Care Provider] - - Patient Instructions Additional Instructions: elevate , apply ice every 2hrs for 20 minutes for the next 2 days while awake take ibuprofen 800mg every 6hrs for pain as needed use the knee splint while awake remove to sleep and bathe (you can use to sleep if comfortable) - Post Discharge Activity Forms/Work/School Notes: Back to Work
== END 2017-05-28 15:42 | disposition home or self-care (01) ==
LOC: JERFT 13:08
PROC: 2W3RX1Z Immobilization of Left Lower Leg using Splint (ICD-10-PCS; principal; 2017-05-28)
DX: S83.92XS Sprain of unspecified site of left knee, sequela (principal); M25.462 Effusion, left knee
CPT/HCPCS: 73562-TC-LT; 99281-25

== ENCOUNTER 2018-09-09 12:21 | Inpatient (IN) | payer BC ==
[2018-09-09 12:26] VITALS: TEMP 97.5; BMI 34.8
--- NOTE | 2018-09-09 12:35 | PDOC ---
History of Present Illness - General Chief Complaint: Shortness of Breath Stated Complaint: BREATHING PROBLEMS Time Seen by Provider: 09/09/18 12:34 - History of Present Illness Initial Comments: 09/09/18 12:37 The patient is a 57 year old male with a PMH of Acute systolic HF, COPD, Abdominal and Inguinal hernia, presents c/o 1 week h/o of worsening shortness of breath. Over the last week patient has noticed he has become short of breath while walking less than 20 feet. Yesterday evening he felt panicked and short of breath while lying in bed prompting his visit to the ED this afternoon. Notes he stopped 4 times while walking between the visitor parking lot and the ED. 10 cigarettes daily for the last year, previously 2 ppd, started smoking at age 10. H/o cardiac cath in 2017 w/o any blockage. States he had heart failure and PNA 2017 and his heart failure got better after his PNA resolved. States he was on a water pill for a few months following his 2017 evaluation at our facility, however he does not take any medications at this time. Denies associated chest pain, lightheadedness, palpitations, lower extremity swelling. NKDA Surgical: abdominal hernia repair, inguinal hernia repair, cardiac cath, laminectomy Social: 10 cigarettes daily, wine and beer daily, marijuana/cocaine weekly PMD: Dr. Tucker Giang, [place] As per EMR, patient last evaluated in our ED in 06/04 for foot injury. Discharged home with supportive care. Evaluated in our ED in 08/2016 for shortness of breath at which time LOC showed LEF of 25-30%. Past History - Past Medical History Allergies/Adverse Reactions: Allergies Allergy/AdvReac Type Severity Reaction Status Date / Time No Known Allergies Allergy Verified 09/09/18 12:23 Home Medications: Ambulatory Orders Pregabalin [Lyrica] 50 mg PO BID 08/23/16 Furosemide [Lasix] 40 mg PO DAILY 03/13/17 Lisinopril 5 mg PO DAILY 03/13/17 Oxycodone HCl/Acetaminophen [Percocet 5-325 mg Tablet] 1 - 2 tab PO Q4H Spironolactone 25 mg PO DAILY 03/13/17 Tramadol HCl 50 mg PO Q6H #12 tablet MDD 200 mg 03/13/17 Anemia: No Asthma: No Cancer: No Cardiac Disorders: Yes CVA: No COPD: Yes CHF: No Dementia: No Diabetes: No GI Disorders: No Disorders: No HTN: No Hypercholesterolemia: No Liver Disease: No Seizures: No Thyroid Disease: No - Surgical History Abdominal Surgery: Yes (HERNIA) Appendectomy: No Cardiac Surgery: No Cholecystectomy: No Lung Surgery: No Neurologic Surgery: No Orthopedic Surgery: Yes (LEFT KNEE ARTHROSCOPY 2012) - Immunization History Immunization Up to Date: Yes - Suicide/Smoking/Psychosocial Hx Smoking Status: Yes Smoking History: Current every day smoker Have you smoked in the past 12 months: Yes Number of Cigarettes Smoked Daily: 5 Information on smoking cessation initiated: No 'Breaking Loose' booklet given: 05/28/17 Hx Alcohol Use: No Drug/Substance Use Hx: Yes (MARIJUANA) Substance Use Type: None Hx Substance Use Treatment: No Review of Systems - Review of Systems Constitutional: No: Chills, Fever HEENTM: No: Recent change in vision Respiratory: Yes: Shortness of Breath. No: Orthopnea, Wheezing, Productive cough, Hemoptysis Cardiac (ROS): No: Chest Pain, Lightheadedness, Palpitations, Syncope ABD/GI: No: Constipated, Diarrhea, Nausea, Vomiting : No: Burning, Dysuria Musculoskeletal: Yes: Back Pain *Physical Exam - Vital Signs Last Vital Signs Temp Pulse Resp BP Pulse Ox 97.5 F L 96 H 16 150/103 H 96 09/09/18 12:23 09/09/18 12:23 09/09/18 12:23 09/09/18 12:23 09/09/18 12:23 - Physical Exam General Appearance: Yes: Nourished, Obese HEENT: positive: Normal Voice, Hearing Grossly Normal Neck: positive: Trachea midline, Supple Respiratory/Chest: positive: Other (Bibasilar wheezing, labored respirations w/ o accessory muscle use on RA) Cardiovascular: positive: S1, S2, Edema (non-pitting LE edema (chronic)). negative: JVD, Murmur, Gallop/S3 Vascular Pulses: Dorsalis-Pedis (R): 2+, Doralis-Pedis (L): 2+ Gastrointestinal/Abdominal: positive: Normal Bowel Sounds, Soft. negative: Guarding, Rebound, Tenderness, Hernia, Mass Integumentary: positive: Normal Color, Dry, Warm Neurologic: positive: Fully Oriented, Alert Moderate Sedation - Procedure Monitoring Vital Signs: Procedure Monitoring Vital Signs Temperature 97.5 F L 09/09/18 12:23 Pulse Rate 96 H 09/09/18 12:23 Respiratory Rate 16 09/09/18 12:23 Blood Pressure 150/103 H 09/09/18 12:23 O2 Sat by Pulse Oximetry (%) 96 09/09/18 12:23 ED Treatment Course - LABORATORY CBC & Chemistry Diagram: 09/09/18 14:10 09/09/18 14:10 Medical Decision Making - Medical Decision Making 09/09/18 13:09 57 year old male with shortness of breath. Hypoxic (low 90's) @ presentation. Frontal diagnosis: Acute COPD exacerbation, +/- CHF, PNA, r/o ACS. Consider PE , but given patient's history and clinical presentation, less likely. Will obtain Troponin x1, BNP, EKG, CXR, D-Dimer. Reassess. 09/09/18 14:23 EKG non-ischemic as documented in EMR Bedside echo shows L atrial enlargement, L wall hypokinesis, significant B lines Labs pending Patient reassessed @ bedside, breathing comfortably on 5 L NC 09/09/18 14:28 My read of CXR shows cardiomegaly and significant pulmonary vascular congestion 09/09/18 15:24 BNP 4753 (previous BNP 4195) Troponin 0.05 D-Dimer 1800 Will give ASA, Lasix 20 mg IV (patient previously on Lasix, however has not taken diuretics for 1+ year) - close monitoring, consider CT scan pending respiratory status. Hospitalist paged for admission 09/09/18 15:35 Case d/w Dr. Aguilar - accepts patient for admission. Request CT scan Patient counseled on plan of care. Clinical Impression: CHF exacerbation +/- COPD Exacerbation *DC/Admit/Observation/Transfer Diagnosis at time of Disposition: Shortness of breath - Discharge Dispostion Condition at time of disposition: Fair Decision to Admit order: Yes - Referrals - Patient Instructions - Post Discharge Activity
--- NOTE | 2018-09-09 12:46 | PDOC ---
Attending Attestation - HPI HPI: 09/09/18 14:09 The patient is 57 year old male with a PMH of COPD and acute systolic HF presenting to the ER with worsening shortness of breath for the past week. Patient reports he was lying down in bed yesterday evening when he suddenly began experiencing shortness of breath. He states the shortness of breath is exacerbated with walking short distances. Patient states this is not usual for him. Patient denies using any extra pillows at night or having to sleep on an incline. Patient denies chest pain, fever, chills, nausea, vomiting, leg swelling, palpitations, or lightheadedness. Denies urinary symptoms. Allergies: NKDA Surgical: abdominal hernia repair, inguinal hernia repair, cardiac cath, laminectomy Social Hx: Patient smokes 10 cigarettes daily, but has been smoking since age 10. PCP: Dr. Giang - Physicial Exam PE: 09/09/18 14:07 Adult Exam: General: Well-nourished well-developed individual Cardiac: Regular rate and rhythm, no murmurs rubs or gallops Respiratory: (+) Tachypneic. Crackles in the bases bilaterally. Good air entry. Abdomen: Soft, nondistended, normal bowel sounds, nontender to palpation diffusely Extremities: (+) Trace edema to mid calf bilaterally. Skin: No rashes Neuro: Alert and oriented x3 <Inga Grullon - Last Filed: 09/09/18 14:12> - Medical Decision Making 09/09/18 15:18 Pt presents to the ED complaining of shortness of breath and worsening HANSEN. Concern for CHF exacerbation, less likely COPD exacerbation, unlikely PNA, unlikely PE. LAbs and CXR show evidence of CHF. Will treat with IV lasix and admit to medicine for new onset CHF. 09/09/18 16:52 <Palmira Mandel - Last Filed: 09/09/18 16:54>
[2018-09-09 14:41] LABS: HEMATOCRIT 39.5 % (35.4-49); MCH 29.6 pg (25.7-33.7); MCHC 32.8 g/dl (32.0-35.9); MEAN CELL VOLUME 90.2 fl (80-96); MEAN PLT VOLUME 9.3 fl (7.5-11.1); PLATELET COUNT 266 K/MM3 (134-434); RBC 4.38 M/mm3 (4.00-5.60); WHITE BLOOD COUNT 11.6 K/mm3 (4.0-10.0)
[2018-09-09 15:12] LABS: ALBUMIN 3.3 g/dl (3.4-5.0); ALK PHOS 118 U/L (45-117); ANION GAP 9 MMOL/L (8-16); BILIRUBIN,TOTAL 0.9 mg/dL (0.2-1); BLOOD UREA NITROGEN 22 mg/dL (7-18); CHLORIDE 107 mmol/L (98-107); CO2 24 mmol/L (21-32); CREATININE 1.2 mg/dL (0.55-1.3); GLUCOSE,RANDOM 122 mg/dL (74-106); N-TERMINAL BNP 4753.9 pg/ml (5-125); POTASSIUM 4.4 mmol/L (3.5-5.1); SGOT/AST 71 U/L (15-37); SGPT/ALT 98 U/L (13-61); SODIUM 140 mmol/L (136-145); TOT PROT 6.3 g/dl (6.4-8.2)
[2018-09-09] MEDS ORDERED: FUROSEMIDE 40 MG/4 ML INJECTABLE VIAL IVPUSH ONE ×2 (15:21→17:00)
[2018-09-09] MEDS ORDERED: ASPIRIN 325 MG TABLET PO ONE (15:21)
[2018-09-09] MEDS ORDERED: FUROSEMIDE 40 MG/4 ML INJECTABLE VIAL ONE ×2 (15:36→19:09)
[2018-09-09] MEDS ORDERED: ASPIRIN 325 MG TABLET ONE (15:36)
--- NOTE | 2018-09-09 17:03 | HP ---
CHIEF COMPLAINT: Shortness of breath PCP: Dr. Giang Engineering Faculty: Dr. De Leon; last seen early 2016 HISTORY OF PRESENT ILLNESS: 57yo M with history of systolic CHF, COPD (not on home oxygen; not on home steroids), and hypertension who presents today with increasing shortness of breath first starting about 1 weeks prior. Pt reports the shortness of breath is mostly exacerbated at work and has been impacting his work ([employer]). Pt reports that at baseline he would have minimal shortness of breath with walking around the block or with ascending multiple flights of stairs. He reports that for the past week he's been having increased orthopnea (baseline used 2 pillows ) and has had shortness of breath at rest. Pt reports first seeing Dr. De Leon in 2017 who prescribed Lasix and Aldactone along with Lisinopril, however the pt has since stopped the medications himself due to feeling like he was better. Pt also endorses gaining about 10lbs in the past 1-2weeks and endorses increasing his water intake. He reports drinking 2-3 20oz seltzer bottles everyday alongside of 2-3 beers per day. Pt denies any fever/chills, n/v/d/c, headache, blurry vision, lightheadedness, chest pain/discomfort, palpitations, abdominal pain, dysuria, hematuria, back pain. Pt denies using much salt in his diet as he was previously on a ketogenic diet for the holidays. Of note pt reports L knee pain which is chronic and not increasing and R paresthesias 2/2 to sciatica which has not increased in intensity or frequency. ER course was notable for: (1) Lasix 20mg IVP (2) ASA 325 (3) Bedside echocardiogram with hypokinesis and dilation of atria noted Recent Travel: Denies PAST MEDICAL HISTORY: HFrEF HTN COPD Sciatica Osteoarthritis PAST SURGICAL HISTORY: L knee arthroscopy (2011) Hemorrhoidectomy Lumbar spine surgery, L1-L2 Social History: Smoking: Current; 1/2 ppd Alcohol: 2-3 beers per day Drugs: Marijuana (smokes; daily); Cocaine (snorts; last use Saturday09/05/18) [employer] Family History: Noncontributory Allergies No Known Allergies Allergy (Verified 09/09/18 12:23) HOME MEDICATIONS: Home Medications Medication Instructions Recorded Pregabalin [Lyrica] 50 mg PO BID 08/23/16 Furosemide [Lasix] 40 mg PO DAILY 03/13/17 Lisinopril 5 mg PO DAILY 03/13/17 Oxycodone HCl/Acetaminophen 1 - 2 tab PO Q4H 03/13/17 [Percocet 5-325 mg Tablet] Spironolactone 25 mg PO DAILY 03/13/17 REVIEW OF SYSTEMS As per HPI PHYSICAL EXAMINATION Vital Signs - 24 hr 09/09/18 12:23 Temperature 97.5 F L Pulse Rate 96 H Respiratory 16 Rate Blood Pressure 150/103 H O2 Sat by Pulse 96 Oximetry (%) GENERAL: NAD, awake, alert, and fully oriented, anxious HEENT: NC/AT, EOMI, DANIEL with 4mm at baseline, MMM NECK: JVD noted, soft LUNGS: Lower lobe rales with end-expiratory wheezing noted in upper lobes. No accessory muscle use. SpO2 94% on 2LNC HEART: RRR, normal S1 and S2 with diastolic 2/6 pulmonic murmur and 3/6 systolic murmur at the apex ABDOMEN: Soft, obese, NT/ND, normoactive bowel sounds, no guarding, + hepatojugular reflux. No hepatomegaly via percussion. No asterixis MUSCULOSKELETAL: No CVA tenderness. EXTREMITIES: 2+ DP pulses, warm, trace pitting edema at the ankles NEUROLOGICAL: radio division captain II-XII intact. Strength 5/5 in all extremities. Sensation intact throughout. normal speech. Gait not observed PSYCHIATRIC: Cooperative. Good eye contact. Anxious SKIN: Warm, dry, no rashes or lesions noted Laboratory Results 09/09/18 09/09/18 09/09/18 14:10 14:10 14:10 WBC 11.6 H RBC 4.38 Hgb 13.0 Hct 39.5 MCV 90.2 MCH 29.6 MCHC 32.8 RDW 15.0 D Plt Count 266 MPV 9.3 D-Dimer 1801 H Sodium 140 Potassium 4.4 Chloride 107 Carbon Dioxide 24 Anion Gap 9 BUN 22 H Creatinine 1.2 Creat Clearance w eGFR > 60 Random Glucose 122 H Calcium 8.0 L Total Bilirubin 0.9 AST 71 H ALT 98 H Alkaline Phosphatase 118 H Creatine Kinase 128 Troponin I 0.05 B-Natriuretic Peptide 4753.9 H Total Protein 6.3 L Albumin 3.3 L ASSESSMENT/PLAN: HFrEF; acute exacerbation Hypertensive urgency Transaminitis Polysubstance abuse Sciatica Hypoalbuminemia --Exacerbation likely due to increased seltzer/volume intake with pt's noncompliance with medication regiment --Previously NYHA class II-III at baseline --Cardiology consulted --Lasix 40mg IVP BID for now --Aldactone 25mg qDaily --daily weights; inputs/outputs qShift --Restart Lisinopril 5mg qdaily --Avoid beta-blockade due to recent cocaine use --Echocardiogram for EF evaluation; previously 08/2016 EF 25-30% --CXR noted --Elevated BP likely due to possible withdrawal from cocaine and noncompliance --Rpt BP 150/80 per automated cuff --Would avoid beta-blockade for now due to cocaine use --Can likely place on CCB if needed to control BP --Likely some withdrawal state from cocaine and potential for withdrawal from alcohol --Monitor CIWA --Can use PRN Librium or initiate librium protocol if begins to withdraw --Does not wish to pursue detox at this point --Transaminitis likely from congestive changes; monitor --Hypoalbuminemia 2/2 to CHF vs. hepatic changes vs. mixed --Can continue home Lyrica 50mg BID PO FEN: Fluids: Avoid; active diuresis Electrolyte abnormalities: None currently; corrected Ca 8.56 (lower limit of normal) Nutrition: Sodium-controlled diet PPX: DVT - Lovenox GI - Not indicated Code status: Full code Dispo: Telemetry admission Case discussed with Dr. Saskia Aguilar, DO - IM PGY-2 Visit type - Emergency Visit Emergency Visit: Yes ED Registration Date: 09/09/18 Care time: The patient presented to the Emergency Department on the above date and was hospitalized for further evaluation of their emergent condition. - New Patient This patient is new to me today: Yes Date on this admission: 09/09/18 - Critical Care Critical Care patient: No
--- NOTE | 2018-09-09 18:30 | PN ---
Teaching Attending Note Name of Resident: Jorge Aguilar ATTENDING PHYSICIAN STATEMENT I saw and evaluated the patient. I reviewed the resident's note and discussed the case with the resident. I agree with the resident's findings and plan as documented. SUBJECTIVE:SOB OBJECTIVE: Vital Signs Period Temp Pulse Resp BP Sys/Garcia Pulse Ox Last 24 Hr 97.5 F 96 16 150/103 96 Middle aged man mild respiratory distress HEENT: Mm moist, no anemia, PERRLA EOMI NECK: JVD +, no Bruit CHEST: B/L Crepts at bases CVS: s1S2 Tachycardia SM in MA ABD: no distention, non tender Bs + EXT: Edema feet +, pulses + CVS: AOX3 non focal CBC, BMP 09/09/18 14:10 09/09/18 14:10 Trop; Normal CXR: Pulmonary congestion EKG: No acute St t chnages ASSESSMENT AND PLAN:57 yrs old man Polysubstance abuse (ETOH , cocaine last use on Saturday), nonischemic cardiomyopathy, [id number](last ECHO 2016 ), Class C NYHA stage 2-3 non compliant drinks daily, stopped taking medication , HTN, Dyslipedemia, present with gradually worsening SOB, HANSEN, PND and orthopnea over past few wks for past 2 days symptom worsened so came Ed for evaluation, elevated BP, Elevated BNP, CXR congestive changes. Impression; Acute Decompensation of Systolic HF Problem List - Problems (1) Acute systolic (congestive) heart failure Assessment/Plan: due to non compliance and substance abuse, IV Lasix 40 mg BID, resume Lisinopril, F/UBMP serial CE, U Tox, IP OP chart low salt Diet, resume aldactone on discharged , hold on B Blockers till U Tox result, Rpt ECHo Cardiology consult. Code(s): I50.21 - ACUTE SYSTOLIC (CONGESTIVE) HEART FAILURE (2) COPD exacerbation Assessment/Plan: Cont Duoneb PRN q 6 hrly Code(s): J44.1 - CHRONIC OBSTRUCTIVE PULMONARY DISEASE W (ACUTE) EXACERBATION (3) HTN (hypertension) Assessment/Plan: Cont home meds Code(s): I10 - ESSENTIAL (PRIMARY) HYPERTENSION (4) D-dimer, elevated Assessment/Plan: Unlikely PE schedule for CTA by ED will F/U LE Doppler cont DVT prophylaxis Code(s): R79.89 - OTHER SPECIFIED ABNORMAL FINDINGS OF BLOOD CHEMISTRY
[2018-09-09] MEDS ORDERED: PREGABALIN 50 MG CAPSULE PO SCH (22:00)
[2018-09-10] MEDS ORDERED: PREGABALIN 50 MG CAPSULE ONE (00:20)
--- NOTE | 2018-09-10 00:52 | HOSP ---
Subjective - Review of Symptoms Subjective: Was contacted by the nurse that the patient wished to leave AMA. He expressed frustration at not getting a room and wanted to "be uncomfortable at home" The risks and benefits of leaving against medical advice were explained to the patient including worsening of his CHF, worsening SOB, morbidity and possible mortality. Patient verbalized understanding of the above risks and still wished to sign out AMA. Appropritae paperwork was fill out, signed by the patient and can be found in his chart. Encouraged the patient to follow up with his PCP and his professional security officer VARUN after leaving the hospital. Patient stated that he will. Also encouraged the patient to return to the ED if his symptoms got worse. Physical Examination Vital Signs: Vital Signs Temperature 97.5 F L 09/09/18 12:23 Pulse Rate 96 H 09/09/18 12:23 Respiratory Rate 16 09/09/18 12:23 Blood Pressure 150/103 H 09/09/18 12:23 O2 Sat by Pulse Oximetry (%) 96 09/09/18 12:23 Labs: CBC, BMP 09/09/18 14:10 09/09/18 14:10 Visit type - Emergency Visit Emergency Visit: Yes ED Registration Date: 09/09/18 Care time: The patient presented to the Emergency Department on the above date and was hospitalized for further evaluation of their emergent condition. - New Patient This patient is new to me today: Yes Date on this admission: 09/10/18 - Critical Care Critical Care patient: No
[2018-09-10 03:21] VITALS: BP 151/96; PULSE 145
[2018-09-10] MEDS ORDERED: FUROSEMIDE 40 MG/4 ML INJECTABLE VIAL IVPUSH SCH ×2 (06:00)
--- NOTE | 2018-09-10 07:14 | DS ---
Physical Exam: SUBJECTIVE: Last night pt left against medical advice as reported by siderographist team. OBJECTIVE: Vital Signs Period Temp Pulse Resp BP Sys/Garcia Pulse Ox Last 24 Hr 97.5 F-97.5 F 96-145 16- 150-151/96-103 95-96 PHYSICAL EXAM Please see prior hospitalist encounter LABS Laboratory Results - last 24 hr 09/09/18 09/09/18 09/09/18 14:10 14:10 14:10 WBC 11.6 H RBC 4.38 Hgb 13.0 Hct 39.5 MCV 90.2 MCH 29.6 MCHC 32.8 RDW 15.0 D Plt Count 266 MPV 9.3 D-Dimer 1801 H Sodium 140 Potassium 4.4 Chloride 107 Carbon Dioxide 24 Anion Gap 9 BUN 22 H Creatinine 1.2 Creat Clearance w eGFR > 60 Random Glucose 122 H Calcium 8.0 L Total Bilirubin 0.9 AST 71 H ALT 98 H Alkaline Phosphatase 118 H Creatine Kinase 128 Troponin I 0.05 B-Natriuretic Peptide 4753.9 H Total Protein 6.3 L Albumin 3.3 L 09/09/18 21:00 WBC RBC Hgb Hct MCV MCH MCHC RDW Plt Count MPV D-Dimer Sodium Potassium Chloride Carbon Dioxide Anion Gap BUN Creatinine Creat Clearance w eGFR Random Glucose Calcium Total Bilirubin AST ALT Alkaline Phosphatase Creatine Kinase Troponin I 0.05 B-Natriuretic Peptide Total Protein Albumin HOSPITAL COURSE: Date of Admission:09/09/18 Date of Discharge: 09/10/18 Pt admitted on 09/09/18 for acute systolic CHF exacerbation most likely prompted by self-discontinuation of medications and continued excessive seltzer consumption. B/L Pleural effusions were noted on CXR done in the ER. Pt was also noted to have polysubstance abuse and was highly encouraged to cease his use of cocaine and alcohol. Pt affirmed he did not want to go to detox or rehab at this point. Per his hospital course was placed on Lasix 40mg IVP BID, Aldactone 25mg qdaily , and the rest of his regular medications on prior admission here. Pt was to have Cardiology see him for further recommendations and a repeat echocardiogram performed. Unfortunately patient wanted to leave AMA during the night for which the siderographist team attended to patient and explained risks and benefits of leaving AMA. As reported by nocturnal team, pt was aware of these risks and benefits and decided to leave AMA anyway. Pt's IV was removed and pt left. He was implored to seek follow-up with either his procedural nurse or his primary care provider. His home medications of Lasix 40mg PO qDaily, Aldactone 25mg qdaily PO, and Lisinopril 5mg qDaily were refilled and sent to [facility] on [facility] in order to maintain him until his follow-ups. Minutes to complete discharge: 30 Discharge Summary Reason For Visit: ACUTE ON CHRONIC CONGESTIVE HEART FAILURE Current Active Problems D-dimer, elevated (Acute) HTN (hypertension) (Acute) Condition: Fair - Instructions Referrals: Tucker Giang [Primary Care Provider] - Disposition: AGAINST MEDICAL ADVICE - Home Medications Comprehensive Discharge Medication List: Ambulatory Orders Pregabalin [Lyrica] 50 mg PO BID 08/23/16 Furosemide [Lasix] 40 mg PO DAILY 03/13/17 Lisinopril 5 mg PO DAILY 03/13/17 Oxycodone HCl/Acetaminophen [Percocet 5-325 mg Tablet] 1 - 2 tab PO Q4H Spironolactone 25 mg PO DAILY 03/13/17 This patient is new to me today: No Emergency Visit: Yes ED Registration Date: 09/09/18 Care time: The patient presented to the Emergency Department on the above date and was hospitalized for further evaluation of their emergent condition. Critical Care patient: No - Discharge Referral Referred to [facility] No
[2018-09-10] MEDS ORDERED: SPIRONOLACTONE 25 MG TABLET (FP) PO SCH (10:00)
[2018-09-10] MEDS ORDERED: ENOXAPARIN NA (PORCINE) 40 MG/0.4 ML DISP.SYRIN SQ SCH (10:00)
[2018-09-10] MEDS ORDERED: LISINOPRIL 5 MG TABLET (FP) PO SCH (10:00)
--- NOTE | 2018-09-10 10:00 | EKG ---
Test Reason : Blood Pressure : / mmHG Vent. Rate : 095 BPM Atrial Rate : 095 BPM P-R Int : 180 ms QRS Dur : 092 ms QT Int : 402 ms P-R-T Axes : 061 058 068 degrees QTc Int : 505 ms NORMAL SINUS RHYTHM POSSIBLE LEFT ATRIAL ENLARGEMENT BORDERLINE ECG WHEN COMPARED WITH ECG OF 26-AUG-2016 14:46, PREMATURE VENTRICULAR COMPLEXES ARE NO LONGER PRESENT Confirmed by KVNG MARTIN, FÉLIX ([id number]) on 09/10/2018 10:00:27 AM Referred By: Confirmed By:FÉLIX CALDERON MD
== END 2018-09-10 00:47 | disposition left against medical advice (07) | DRG 292 ==
LOC: JER 12:21 → JERBED 15:36 → OBSVTOIN 16:51
PROVIDERS: ADMIT Internal Medicine; ATTEND Internal Medicine
DX: I11.0 Hypertensive heart disease with heart failure (principal); J44.1 Chronic obstructive pulmonary disease with (acute) exacerbation; F14.23 Cocaine dependence with withdrawal; I42.9 Cardiomyopathy, unspecified; I50.23 Acute on chronic systolic (congestive) heart failure; F17.210 Nicotine dependence, cigarettes, uncomplicated; E66.9 Obesity, unspecified; Z68.34 Body mass index [BMI] 34.0-34.9, adult; M54.30 Sciatica, unspecified side; F12.10 Cannabis abuse, uncomplicated; M19.90 Unspecified osteoarthritis, unspecified site; F10.129 Alcohol abuse with intoxication, unspecified; R74.0 Nonspecific elevation of levels of transaminase and lactic acid dehydrogenase [LDH]; E88.09 Other disorders of plasma-protein metabolism, not elsewhere classified; Z91.14 Patient's other noncompliance with medication regimen
CPT/HCPCS: 36415; 71045-TC-FY; 71275-TC; 80053; 82550; 83880; 84484; 85027; 85379; 93005; 93010; 93970-TC; 99282-25; G0378

== ENCOUNTER 2020-05-03 04:59 | Day surgery (SDC) | payer BC ==
[2020-05-02 11:24] VITALS: BMI 36.2
--- OUTSIDE RECORDS SUMMARY | 2020-05-03 05:04 | XMS ---
:1960 Author Organization [facility] Support Name Relationship Address Phone [facility] Unavailable [facility] [phone] [place] [address] [facility] [place] [address] WILDER FRANCES [address] [facility] [place] [address] Re-disclosure Warning The records that you are about to access may contain information from federally- assisted alcohol or drug abuse programs. If such information is present, then the following federally mandated warning applies: This information has been disclosed to you from records protected by federal confidentiality rules (42 CFR part 2). The federal rules prohibit you from making any further disclosure of this information unless further disclosure is expressly permitted by the written consent of the person to whom it pertains or as otherwise permitted by 42 CFR part 2. A general authorization for the release of medical or other information is NOT sufficient for this purpose. The Federal rules restrict any use of the information to criminally investigate or prosecute any alcohol or drug abuse patient.The records that you are about to access may contain highly sensitive health information, the redisclosure of which is protected by Article 27-F of the [facility] Public Health law. If you continue you may haveaccess to information: Regarding HIV / AIDS; Provided by facilities licensed or operated by the [facility] Office of Mental Health; or Provided by the [facility] Office for People With Developmental Disabilities. If such information is present, then the following [facility] mandated warning applies: This information has been disclosed to you from confidential records which are protected by state law. State law prohibits you from making any further disclosure of this information without the specific written consent of the person to whom it pertains, or as otherwise permitted by law. Any unauthorized further disclosure in violation of state law may result in a fine or assisted sentence or both. A general authorization for the release of medical or other information is NOT sufficient authorization for further disclosure. Insurance Providers Payer name Policy type / Policy ID Covered Covered green party's Policy Plan Coverage type green party ID relationship to [employer] Information jackson [employer] PPO [id number] SP [id number] Results ID Date Data Source [id number] 04/28/2020 01:48:00 PM EDT [facility] Name Value Range Interpretation Description Data Sup porting Code Source(s) Document(s ) SARS [facility] coronavirus 2 RNA This lab was ordered by [facility] and reported by [facility]. Procedure
[2020-05-03] MEDS ORDERED: PROPOFOL 20 ML ONE (08:59)
[2020-05-03] MEDS ORDERED: MIDAZOLAM HCL 2 MG/2 ML SINGLE DOSE VIAL ONE ×4 (09:57→11:00)
[2020-05-03] MEDS ORDERED: ONDANSETRON 4 MG/2 ML VIAL IVPUSH PRN (10:29)
[2020-05-03] MEDS ORDERED: oxyCODONE HCL 5 MG TABLET PO PRN ×2 (10:29)
[2020-05-03] MEDS ORDERED: LACTATED RINGERS SOLUTION 1,000 ML IV SCH (10:30)
[2020-05-03] MEDS ORDERED: LIDOCAINE HCL 1%, 10 MG/ML (20ML VIAL) ONE ×2 (10:31→11:36)
[2020-05-03] MEDS ORDERED: ceFAZolin SODIUM 1 GM VIAL ONE (10:41)
[2020-05-03] MEDS ORDERED: SODIUM CHLORIDE 0.9% P/F 10 ML VIAL IJ ONE (10:41)
[2020-05-03] MEDS ORDERED: ceFAZolin SODIUM 1 GM VIAL IVPB ONE (10:50)
[2020-05-03] MEDS ORDERED: BUPIVACAINE HCL/PF 0.5% (5 MG/ML) 30 ML VIAL IJ ONE (11:33)
[2020-05-03] MEDS ORDERED: LIDOCAINE HCL 1%, 10 MG/ML (20ML VIAL) NR ONE (11:34)
[2020-05-03] MEDS ORDERED: LIDOCAINE HCL/PF 2% SDV 5ML VIAL ONE (11:37)
[2020-05-03 13:46] VITALS: TEMP 97.8
[2020-05-03 14:06] VITALS: BP 130/70; PULSE 94
--- NOTE | 2020-05-03 22:12 | PROC ---
Procedure Note Procedure: Date of service: 05/03/2020 Preoperative Diagnosis: Failed Back Surgery Syndrome, Lumbar Radiculopathy, Lumbar Spinal Stenosis Postoperative Diagnosis: Same Procedure Performed: 1) Insertion of spinal cord stimulator leads x 2 2) Fluoroscopic needle guidance 3) Initial programming of device Anesthesia: Local (2% Lidocaine )/MAC Anesthesiologist: Procedure: I discussed with the patient in detail about the risks, benefits and alternatives to treatment not only limited to infection, headache, numbness, weakness and injury to nerves, spinal cord, blood vessels and muscles. The patient understood, agreed and signed the written consent. The patient was positioned prone on the fluoroscopy table. The patient was prepped and draped in the usual sterile fashion using DuraPrep and a fenestrated drape. Routine vital sign monitors were applied and anesthesia was initiated. The patient remained conversant throughout the procedure. The area to be injected was determined using fluoroscopy. Local anesthetic was given by raising a skin wheal and going down to the hub of a 25-gauge 1.5-inch needle. The 25-gauge 3.5-inch needle was used to anesthetize down to just short of the ligamentum flavum to be entered. A 14-gauge Tuohy needle was then advanced to contact the right L1-L2 level. It was walked off in a superior medial direction until it entered the epidural space using loss of resistance to saline and air. The high - frequency spinal cord stimulator lead was advanced through the Tuohy needle and directed to rest the tip at the RT T8. The same procedure was repeated in detail for the left side to insert a second lead within the epidural space to reside at Left T10 level. Lead position was confirmed both in AP and Lateral views under Fluoroscopy. The needles were withdrawn leaving the leads in place and were then secured to the patients skin using Stay-Fix adhesive bandages and Tegaderm. The patients back was cleaned. The patient was allowed to fully recover from anesthesia and taken to the recovery room in good position. The procedure was completed without complications and was tolerated well. The patient was monitored after the procedure. Stimulation programming and testing of the device was done in the recovery room by the device marketing representative. The patient (or responsible democrat) was given post-procedure and discharge instructions to follow at home. The patient was discharged in stable condition. Pre-procedure pain score: 8/10. Post-procedure pain score: 3/10. A follow-up appointment was made. If there is any problem, call my office at [phone] or report to Emergency Room. Kwame Bains M.D.
== END 2020-05-03 13:50 | disposition home or self-care (01) ==
LOC: JASU-SURG 04:59
PROVIDERS: ATTEND Physical Medicine & Rehabilitation
PROC: 00HU3MZ Insertion of Neurostimulator Lead into Spinal Canal, Percutaneous Approach (ICD-10-PCS; principal; 2020-05-03 10:00)
DX: M96.1 Postlaminectomy syndrome, not elsewhere classified (principal); M54.16 Radiculopathy, lumbar region; M54.5 Low back pain
CPT/HCPCS: 63650; C1897; 76000-TC-FY

== ENCOUNTER 2021-05-24 08:58 | Day surgery (SDC) | payer BC ==
[2021-05-24 09:25] VITALS: BMI 34.8
[2021-05-24 10:41] VITALS: TEMP 97.7
[2021-05-24 10:44] VITALS: BP 124/74; PULSE 85
== END 2021-05-24 10:44 | disposition home or self-care (01) ==
LOC: FASU-ENDO 08:58
PROVIDERS: ATTEND Internal Medicine Gastroenterology
PROC: 0DBN8ZX Excision of Sigmoid Colon, Via Natural or Artificial Opening Endoscopic, Diagnostic (ICD-10-PCS; 2021-05-24)
PROC: 0DBN8ZX Excision of Sigmoid Colon, Via Natural or Artificial Opening Endoscopic, Diagnostic (ICD-10-PCS; principal; 2021-05-24 09:41)
DX: Z12.11 Encounter for screening for malignant neoplasm of colon (principal); D12.8 Benign neoplasm of rectum; K63.5 Polyp of colon